=== PATIENT | male | born 1945 | race Caucasian/White ===

== ENCOUNTER 2020-04-28 12:01 | Inpatient (IN) ==
--- NOTE | 2020-04-28 12:43 | Emergency Department Note ---
Impression & Plan Pulmonary edema, DOMINGUEZ (dyspnea on exertion), Anemia ED Provider Note NAME: ELDER SILVER AGE: 75 SEX: M : 1945 ARRIVES VIA: Walk-In INFORMANT: Patient, ED PROVIDER(S): Keshawn Emanuel DO CHIEF COMPLAINT: Shortness of breath HPI: The patient is a 75-year-old male who presented to the emergency department for an evaluation of shortness of breath. The patient has had symptoms since the last week. He started noticing difficulty breathing with exertion. He has had a cough which is nonproductive. He denies having any fevers. He denies having any chest pain or lower extremity swelling. The patient went to the [place] [facility] for an evaluation at at that time was noted to have a pleural effusion on chest x-ray so he was sent to the emergency department for further evaluation. The patient denies having any abdominal pain. He denies having any significant weight loss. The patient has no exposures to COVID-19 as far as he knows. The patient has been compliant with all of his outpatient medications including med ications for hypertension and diabetes. The patient has never had a history of heart failure as far as he knows. His significant other presented to the emergency department with him and is asymptomatic. ROS: See above HPI for pertinent positives & negatives. A total of 10 systems reviewed and were otherwise negative. PAST MEDICAL HISTORY: See Below PAST SURGICAL HISTORY: See Below FAMILY HISTORY: See Below SOCIAL HISTORY: See Below HOME MEDICATIONS: See Below ALLERGIES: See Below VITALS: See Below PHYSICAL EXAMINATION: GENERAL: Patient is awake alert in no acute distress patient is resting comfortably and showing no signs of anxiety EYES: The conjunctivae are clear. The pupils are round and reactive. EARS, NOSE, MOUTH AND THROAT: The nose is without any evidence of any deformity. NECK: The neck is nontender and supple. RESPIRATORY: Diminished breath sounds are noted throughout. There were rales at both bases. Significant conversational dyspnea was noted. CARDIOVASCULAR: Regular rate and rhythm noted there no murmurs rubs or gallops normal S1 normal S2. GASTROINTESTINAL: The abdomen is soft. Abdomen is nontender. Rectal exam revealed light brown stool which was weakly heme positive MUSCULOSKELETAL/EXTREMITIES: There is no evidence of gross deformity full range of motion is noted in the hips and shoulders. SKIN: There is no obvious evidence of any rash. There are no petechiae, pallor or cyanosis noted. NEUROLOGIC: Patient is awake alert and oriented x3. MEDICAL DECISION MAKING: The patient is a 75-year-old male who presented to the emergency department for an evaluation of shortness of breath. The patient has been noticing dyspnea on exertion for approximately 1 week but his symptoms became much worse over the last few days. Initially he was seen at the [facility] and was sent to the em ergency department because of an abnormal x-ray. The chest x-ray report I reviewed from the [place] [facility] did show bilateral infiltrates with pleural effusions. The patient's heart size was enlarged. Repeat chest x-ray was obtained here which appear to be more consistent with pulmonary edema. The melinda garcia's overall presentation appears to be more consistent with pulmonary edema likely secondary to severe anemia. His renal function was also evaluated and showed an elevated creatinine. I discussed the patient's laboratory and radiographic studies with him. Blood products were ordered as well as Lasix given the patient's pulmonary status. He was feeling much better on subsequent reevaluation. [facility] will evaluate the patient in the emergency department for further management and disposition. Triage Nursing notes reviewed. Prior medical records reviewed Vital Signs: reviewed and remarkable for no significant abnormalities Differential diagnosis: Reactive airway disease, pneumonia, pneumothorax, COPD, CHF, infections, cardiac ischemia, pulmonary embolism, musculoskeletal, gastrointestinal, as well as other pathologies. ER treatment provided: See below Diagnostics interpreted by me: ECG: EKG was obtained in the emergency department. My interpretation is normal sinus rhythm at 63 bpm. There is no ectopy. There were no acute ST segment abnormalities noted. There is no previous for comparison. Cardiac Monitoring: An order was placed for continuous cardiac monitoring. The monitor shows a rate of 82 bpm with sinus rhythm. Laboratory studies: As stated above and show below. Imaging studies: See below Consultation(s): [id number]: I discussed this case with Dr. Lozano who [facility] He will evaluate the patient in the emergency department. ED COURSE: Procedures: none PDMP:reviewed and no issues Critical Care: I have personally spent greater than 45 minutes of critical care time in the direct management of this patient. This includes bedside care, interpretation of diagnostic studies, and testing, discussion with consultants, patient, and family members, and other required patient management activities. This 45 minutes is in excess of all separately billable procedures. Past Med/Surg History Medical History (Updated 04/28/20 @ 15:17 by Jono Lozano) DJD (degenerative joint disease), lumbar High cholesterol Hypertension IDDM (insulin dependent diabetes mellitus) Osteoarthritis Surgical History (Updated 04/28/20 @ 15:18 by Jono Lozano) H/O foot surgery left - bone spur Hx of tonsillectomy Family History (Updated 04/28/20 @ 15:20 by Jono Lozano) Mother Diabetes Hypertension Heart disease Father , unknown medical history No problems noted. Brother Hypertension Sister Hypertension Sister Hypertension Social History (Updated 04/28/20 @ 15:22 by Jono Lozano) Smoking Status: Former smoker packs per day: 1; Years Smoked: 15; Smoking End Date: 1983; Hx Alcohol Use: No marital status: Current Living Situation: Spouse Current Living Situation Comment: lives in [place] with current occupational status: retired current occupation: worked for [employer] How many Children do You have: 4 How many Children do You have Comment: step-children Feels Safe at Home: Yes Allergies Allergies Allergy/AdvReac Type Severity Reaction Status Date / Time No Known Allergies Allergy Unverified 04/28/20 14:54 Home Meds Home Medications Medication Instructions Recorded Confirmed amlodipine 10 mg PO DAILY 04/28/20 04/28/20 aspirin 81 mg PO DAILY 04/28/20 04/28/20 atenolol 25 mg PO DAILY 04/28/20 04/28/20 atorvastatin 80 mg PO HS 04/28/20 04/28/20 cetirizine 10 mg PO DAILY 04/28/20 04/28/20 cholecalciferol (vitamin D3) 25 mcg PO DAILY 04/28/20 04/28/20 etodolac 400 mg PO BID 04/28/20 04/28/20 famotidine 20 mg PO DAILY 04/28/20 04/28/20 gabapentin 100 mg PO BID 04/28/20 04/28/20 hydrochlorothiazide 50 mg PO DAILY 04/28/20 04/28/20 insulin aspart U-100 [Novolog 30 unit SUBCUT TID 04/28/20 04/28/20 Flexpen U-100 Insulin] insulin glargine [Lantus Solostar 60 unit SUBCUT HS 04/28/20 04/28/20 U-100 Insulin] lisinopril 40 mg PO DAILY 04/28/20 04/28/20 Results & Data (ED) Vital Signs Vital Signs - 24 hr 04/28/20 12:16 04/28/20 13:13 04/28/20 13:21 Temperature 36.5 C Temperature Source Oral Pulse Rate 66 65 67 Pulse Rate from SpO2 Sensor 65 67 Respiratory Rate 22 17 21 Respiratory Effort / Characteristics Non-Labored Respiratory Depth Normal Respiratory Pattern Regular Blood Pressure 135/74 121/66 Blood Pressure Mean 94 81 Pulse Oximetry 92 94 95 Oxygen Delivery Method Room Air Sepsis Recent Fever Within 48 Hours No Sepsis New/Unexplained Change in Mental Status N/A Sepsis Action Taken by Nursing No Action Required 04/28/20 13:30 04/28/20 13:31 04/28/20 13:33 Temperature Temperature Source Pulse Rate 64 71 Pulse Rate from SpO2 Sensor 64 66 Respiratory Rate 19 17 Respiratory Effort / Characteristics Non-Labored Spontaneous Respiratory Depth Respiratory Pattern Regular Blood Pressure 144/84 H Blood Pressure Mean 103 Pulse Oximetry 91 91 Oxygen Delivery Method Room Air Sepsis Recent Fever Within 48 Hours Sepsis New/Unexplained Change in Mental Status Sepsis Action Taken by Nursing 04/28/20 14:00 04/28/20 14:01 04/28/20 14:30 Temperature Temperature Source Pulse Rate 62 64 66 Pulse Rate from SpO2 Sensor 62 64 Respiratory Rate 17 17 20 Respiratory Effort / Characteristics Respiratory Depth Respiratory Pattern Blood Pressure 164/141 H Blood Pressure Mean 155 Pulse Oximetry 92 93 Oxygen Delivery Method Sepsis Recent Fever Within 48 Hours Sepsis New/Unexplained Change in Mental Status Sepsis Action Taken by Nursing 04/28/20 14:31 Temperature Temperature Source Pulse Rate 68 Pulse Rate from SpO2 Sensor 69 Respiratory Rate 21 Respiratory Effort / Characteristics Respiratory Depth Respiratory Pattern Blood Pressure 124/71 Blood Pressure Mean 92 Pulse Oximetry 93 Oxygen Delivery Method Sepsis Recent Fever Within 48 Hours Sepsis New/Unexplained Change in Mental Status Sepsis Action Taken by [facility] Medications Current Medication List: was personally reviewed by me Laboratory Data Attestation: I reviewed the patient's lab results. Result diagrams: 04/28/20 13:15 04/28/20 13:15 Lab Results 04/28/20 04/28/20 04/28/20 Range/Units 13:15 13:15 13:15 WBC 9.97 (4.8-10.8) K/uL RBC 2.76 L (4.7-6.1) M/uL Hgb 6.2 L* (14.0-18.0) g/dL Hct 20.7 L* (42-52) % MCV 75.0 L (80-100) fL MCH 22.5 L (25-34) pg MCHC 30.0 L (32-36) g/dL RDW Std Deviation 40.1 (36.4-46.3) fL RDW Coeff of Sarah 14.6 H (11.5-14.5) % Plt Count 257 (130-400) K/uL MPV 10.6 H (7.4-10.4) fL Immature Gran % (Auto) 0.2 % Neut % (Auto) 84.0 % Lymph % (Auto) 7.7 % Iron % (Auto) 7.0 % Eos % (Auto) 0.7 % Baso % (Auto) 0.4 % Neut # (Auto) 8.37 H (1.4-6.5) K/uL Lymph # (Auto) 0.77 L (1.2-3.4) K/uL Iron # (Auto) 0.70 H (0.11-0.59) K/uL Eos # (Auto) 0.07 (0-0.5) K/uL Baso # (Auto) 0.04 (0-0.2) K/uL Immature Gran # (Auto) 0.02 (0.00-0.02) K/uL Polychromasia 1+ Microcytosis Present ESR (0-14) mm/hr PT 11.3 (9.0-12.0) Seconds INR 1.1 (0.9-1.1) APTT 21.1 (21.0-31.0) Seconds PTT Ratio 0.8 VBG pH (7.36-7.41) VBG pCO2 (38-50) mmHg VBG pO2 mmHg VBG HCO3 mmol/L VBG O2 Saturation % VBG Base Excess mEq/L Barometric Pressure mm/Hg Sodium 135 L (136-145) mmol/L Potassium 4.4 (3.5-5.1) mmol/L Chloride 107 (98-107) mmol/L Carbon Dioxide 21 (21-32) mmol/L Anion Gap 7.0 (3-11) BUN 32 H (7-18) mg/dl Creatinine 2.14 H (0.6-1.4) mg/dl Est Cr Clr Drug Dosing 37.2 ml/min Est GFR ( Amer) 34.3 Est GFR (Non-Af Amer) 29.6 BUN/Creatinine Ratio 15.1 (10-20) Glucose 255 H (70-99) mg/dl Lactate (0.4-2.0) mmol/L Calcium 8.1 L (8.5-10.1) mg/dl Magnesium 2.5 H (1.8-2.4) mg/dl Total Bilirubin 0.7 (0.2-1) mg/dl AST 28 (15-37) U/L ALT 37 (12-78) U/L Alkaline Phosphatase 118 H (45-117) U/L Troponin I < 0.015 (0-0.045) ng/ml C-Reactive Protein (0-0.29) mg/dl NT-Pro-B Natriuret Pep (0-900) pg/ml Total Protein 6.9 (6.4-8.2) gm/dl Albumin 2.9 L (3.4-5.0) gm/dl Globulin 4.0 (2.5-4.0) gm/dl Albumin/Globulin Ratio 0.7 L (0.9-2) Procalcitonin (0-0.5) ng/ml COVID-19 Eval Order COVID-19 PCR (Negative) Nasopharyn COVID-19 PCR Influenza Type A (PCR) (Neg) Influenza Type B (PCR) (Neg) Blood Type Blood Type Recheck Antibody Screen Crossmatch 04/28/20 04/28/20 04/28/20 Range/Units 13:15 13:15 13:17 WBC (4.8-10.8) K/uL RBC (4.7-6.1) M/uL Hgb (14.0-18.0) g/dL Hct (42-52) % MCV (80-100) fL MCH (25-34) pg MCHC (32-36) g/dL RDW Std Deviation (36.4-46.3) fL RDW Coeff of Sarah (11.5-14.5) % Plt Count (130-400) K/uL MPV (7.4-10.4) fL Immature Gran % (Auto) % Neut % (Auto) % Lymph % (Auto) % Iron % (Auto) % Eos % (Auto) % Baso % (Auto) % Neut # (Auto) (1.4-6.5) K/uL Lymph # (Auto) (1.2-3.4) K/uL Iron # (Auto) (0.11-0.59) K/uL Eos # (Auto) (0-0.5) K/uL Baso # (Auto) (0-0.2) K/uL Immature Gran # (Auto) (0.00-0.02) K/uL Polychromasia Microcytosis ESR (0-14) mm/hr PT (9.0-12.0) Seconds INR (0.9-1.1) APTT (21.0-31.0) Seconds PTT Ratio VBG pH (7.36-7.41) VBG pCO2 (38-50) mmHg VBG pO2 mmHg VBG HCO3 mmol/L VBG O2 Saturation % VBG Base Excess mEq/L Barometric Pressure mm/Hg Sodium (136-145) mmol/L Potassium (3.5-5.1) mmol/L Chloride (98-107) mmol/L Carbon Dioxide (21-32) mmol/L Anion Gap (3-11) BUN (7-18) mg/dl Creatinine (0.6-1.4) mg/dl Est Cr Clr Drug Dosing ml/min Est GFR ( Amer) Est GFR (Non-Af Amer) BUN/Creatinine Ratio (10-20) Glucose (70-99) mg/dl Lactate (0.4-2.0) mmol/L Calcium (8.5-10.1) mg/dl Magnesium (1.8-2.4) mg/dl Total Bilirubin (0.2-1) mg/dl AST (15-37) U/L ALT (12-78) U/L Alkaline Phosphatase (45-117) U/L Troponin I (0-0.045) ng/ml C-Reactive Protein 0.64 H (0-0.29) mg/dl NT-Pro-B Natriuret Pep 1125 H (0-900) pg/ml Total Protein (6.4-8.2) gm/dl Albumin (3.4-5.0) gm/dl Globulin (2.5-4.0) gm/dl Albumin/Globulin Ratio (0.9-2) Procalcitonin 0.12 (0-0.5) ng/ml COVID-19 Eval Order COVID-19 PCR (Negative) Nasopharyn COVID-19 PCR Influenza Type A (PCR) Neg for Influ A (Neg) Influenza Type B (PCR) Neg for Influ B (Neg) Blood Type Blood Type Recheck Antibody Screen Crossmatch 04/28/20 04/28/20 04/28/20 Range/Units 13:17 13:17 13:17 WBC (4.8-10.8) K/uL RBC (4.7-6.1) M/uL Hgb (14.0-18.0) g/dL Hct (42-52) % MCV (80-100) fL MCH (25-34) pg MCHC (32-36) g/dL RDW Std Deviation (36.4-46.3) fL RDW Coeff of Sarah (11.5-14.5) % Plt Count (130-400) K/uL MPV (7.4-10.4) fL Immature Gran % (Auto) % Neut % (Auto) % Lymph % (Auto) % Iron % (Auto) % Eos % (Auto) % Baso % (Auto) % Neut # (Auto) (1.4-6.5) K/uL Lymph # (Auto) (1.2-3.4) K/uL Iron # (Auto) (0.11-0.59) K/uL Eos # (Auto) (0-0.5) K/uL Baso # (Auto) (0-0.2) K/uL Immature Gran # (Auto) (0.00-0.02) K/uL Polychromasia Microcytosis ESR (0-14) mm/hr PT (9.0-12.0) Seconds INR (0.9-1.1) APTT (21.0-31.0) Seconds PTT Ratio VBG pH (7.36-7.41) VBG pCO2 (38-50) mmHg VBG pO2 mmHg VBG HCO3 mmol/L VBG O2 Saturation % VBG Base Excess mEq/L Barometric Pressure mm/Hg Sodium (136-145) mmol/L Potassium (3.5-5.1) mmol/L Chloride (98-107) mmol/L Carbon Dioxide (21-32) mmol/L Anion Gap (3-11) BUN (7-18) mg/dl Creatinine (0.6-1.4) mg/dl Est Cr Clr Drug Dosing ml/min Est GFR ( Amer) Est GFR (Non-Af Amer) BUN/Creatinine Ratio (10-20) Glucose (70-99) mg/dl Lactate (0.4-2.0) mmol/L Calcium (8.5-10.1) mg/dl Magnesium (1.8-2.4) mg/dl Total Bilirubin (0.2-1) mg/dl AST (15-37) U/L ALT (12-78) U/L Alkaline Phosphatase (45-117) U/L Troponin I (0-0.045) ng/ml C-Reactive Protein (0-0.29) mg/dl NT-Pro-B Natriuret Pep (0-900) pg/ml Total Protein (6.4-8.2) gm/dl Albumin (3.4-5.0) gm/dl Globulin (2.5-4.0) gm/dl Albumin/Globulin Ratio (0.9-2) Procalcitonin (0-0.5) ng/ml COVID-19 Eval Order Covid19 Sent to [facility] COVID-19 PCR NEGATIVE (Negative) Nasopharyn COVID-19 PCR Cancelled Influenza Type A (PCR) (Neg) Influenza Type B (PCR) (Neg) Blood Type Blood Type Recheck Antibody Screen Crossmatch 04/28/20 04/28/20 04/28/20 Range/Units 14:12 14:12 14:12 WBC (4.8-10.8) K/uL RBC (4.7-6.1) M/uL Hgb (14.0-18.0) g/dL Hct (42-52) % MCV (80-100) fL MCH (25-34) pg MCHC (32-36) g/dL RDW Std Deviation (36.4-46.3) fL RDW Coeff of Sarah (11.5-14.5) % Plt Count (130-400) K/uL MPV (7.4-10.4) fL Immature Gran % (Auto) % Neut % (Auto) % Lymph % (Auto) % Iron % (Auto) % Eos % (Auto) % Baso % (Auto) % Neut # (Auto) (1.4-6.5) K/uL Lymph # (Auto) (1.2-3.4) K/uL Iron # (Auto) (0.11-0.59) K/uL Eos # (Auto) (0-0.5) K/uL Baso # (Auto) (0-0.2) K/uL Immature Gran # (Auto) (0.00-0.02) K/uL Polychromasia Microcytosis ESR 11 (0-14) mm/hr PT (9.0-12.0) Seconds INR (0.9-1.1) APTT (21.0-31.0) Seconds PTT Ratio VBG pH 7.38 (7.36-7.41) VBG pCO2 36 L (38-50) mmHg VBG pO2 35 mmHg VBG HCO3 21 mmol/L VBG O2 Saturation < 60.0 % VBG Base Excess -3.8 mEq/L Barometric Pressure 736.2 mm/Hg Sodium (136-145) mmol/L Potassium (3.5-5.1) mmol/L Chloride (98-107) mmol/L Carbon Dioxide (21-32) mmol/L Anion Gap (3-11) BUN (7-18) mg/dl Creatinine (0.6-1.4) mg/dl Est Cr Clr Drug Dosing ml/min Est GFR ( Amer) Est GFR (Non-Af Amer) BUN/Creatinine Ratio (10-20) Glucose (70-99) mg/dl Lactate 1.6 (0.4-2.0) mmol/L Calcium (8.5-10.1) mg/dl Magnesium (1.8-2.4) mg/dl Total Bilirubin (0.2-1) mg/dl AST (15-37) U/L ALT (12-78) U/L Alkaline Phosphatase (45-117) U/L Troponin I (0-0.045) ng/ml C-Reactive Protein (0-0.29) mg/dl NT-Pro-B Natriuret Pep (0-900) pg/ml Total Protein (6.4-8.2) gm/dl Albumin (3.4-5.0) gm/dl Globulin (2.5-4.0) gm/dl Albumin/Globulin Ratio (0.9-2) Procalcitonin (0-0.5) ng/ml COVID-19 Eval Order COVID-19 PCR (Negative) Nasopharyn COVID-19 PCR Influenza Type A (PCR) (Neg) Influenza Type B (PCR) (Neg) Blood Type Blood Type Recheck Antibody Screen Crossmatch 04/28/20 04/28/20 Range/Units 14:12 14:27 WBC (4.8-10.8) K/uL RBC (4.7-6.1) M/uL Hgb (14.0-18.0) g/dL Hct (42-52) % MCV (80-100) fL MCH (25-34) pg MCHC (32-36) g/dL RDW Std Deviation (36.4-46.3) fL RDW Coeff of Sarah (11.5-14.5) % Plt Count (130-400) K/uL MPV (7.4-10.4) fL Immature Gran % (Auto) % Neut % (Auto) % Lymph % (Auto) % Iron % (Auto) % Eos % (Auto) % Baso % (Auto) % Neut # (Auto) (1.4-6.5) K/uL Lymph # (Auto) (1.2-3.4) K/uL Iron # (Auto) (0.11-0.59) K/uL Eos # (Auto) (0-0.5) K/uL Baso # (Auto) (0-0.2) K/uL Immature Gran # (Auto) (0.00-0.02) K/uL Polychromasia Microcytosis ESR (0-14) mm/hr PT (9.0-12.0) Seconds INR (0.9-1.1) APTT (21.0-31.0) Seconds PTT Ratio VBG pH (7.36-7.41) VBG pCO2 (38-50) mmHg VBG pO2 mmHg VBG HCO3 mmol/L VBG O2 Saturation % VBG Base Excess mEq/L Barometric Pressure mm/Hg Sodium (136-145) mmol/L Potassium (3.5-5.1) mmol/L Chloride (98-107) mmol/L Carbon Dioxide (21-32) mmol/L Anion Gap (3-11) BUN (7-18) mg/dl Creatinine (0.6-1.4) mg/dl Est Cr Clr Drug Dosing ml/min Est GFR ( Amer) Est GFR (Non-Af Amer) BUN/Creatinine Ratio (10-20) Glucose (70-99) mg/dl Lactate (0.4-2.0) mmol/L Calcium (8.5-10.1) mg/dl Magnesium (1.8-2.4) mg/dl Total Bilirubin (0.2-1) mg/dl AST (15-37) U/L ALT (12-78) U/L Alkaline Phosphatase (45-117) U/L Troponin I (0-0.045) ng/ml C-Reactive Protein (0-0.29) mg/dl NT-Pro-B Natriuret Pep (0-900) pg/ml Total Protein (6.4-8.2) gm/dl Albumin (3.4-5.0) gm/dl Globulin (2.5-4.0) gm/dl Albumin/Globulin Ratio (0.9-2) Procalcitonin (0-0.5) ng/ml COVID-19 Eval Order COVID-19 PCR (Negative) Nasopharyn COVID-19 PCR Influenza Type A (PCR) (Neg) Influenza Type B (PCR) (Neg) Blood Type O Positive Blood Type Recheck O Positive Antibody Screen NEGATIVE Crossmatch See Detail Administered Medications Discontinued Medications Furosemide (Furosemide 40 Mg/4 Ml Vial) 40 mg IV NOW STA Stop: 04/28/20 14:05 Last Admin: 04/28/20 14:46 Dose: 40 mg Documented by: [id number] Imaging Data Radiologist's Impression: XR chest 1V portable HISTORY: 75 years-old Male Dyspnea acute shortness of breath COMPARISON: None TECHNIQUE: Portable AP view of the chest FINDINGS: Cardiac silhouette is enlarged. Pulmonary vascular congestion with interstitial coarsening. No pneumothorax. Small pleural effusions with bibasilar consolidation. Degenerative changes of the shoulders and spine. IMPRESSION: 1. Cardiomegaly with pulmonary vascular congestion and interstitial coarsening suggestive of pulmonary edema. 2. Small pleural effusions with bibasilar opacities suggestive of atelectasis versus pneumonitis. ACT 112: Negative or not required by law. The above report was generated using voice recognition software. It may contain grammatical, syntax or spelling errors. Electronically signed by: Yovani Greco M.D. 04/28/2020 1:39 PM Dictated: 04/28/20 1339 Transcribed: 04/28/201338 Blood Pressure Blood Pressure Findings: Normal blood pressure Discharge Plan Visit Data Chief Complaint: Shortness of Breath/Dyspnea Stated Complaint: SOB, FLUID ON LUNGS SENT BY ED Provider: Keshawn Emanuel Discharge Problem: Pulmonary edema, DOMINGUEZ (dyspnea on exertion), Anemia Patient Disposition: Being Evaluated by Hospitalist Condition: Good Forms Stand Alone Forms: My [facility] [place] [employer] Prescriptions Prescriptions: No Action atorvastatin 80 mg Tablet 80 mg PO HS RF: 0 etodolac 200 mg Capsule 400 mg PO BID RF: 0 cetirizine 10 mg Tablet 10 mg PO DAILY RF: 0 hydrochlorothiazide 50 mg Tablet 50 mg PO DAILY RF: 0 atenolol 25 mg Tablet 25 mg PO DAILY RF: 0 aspirin 81 mg Tablet,Delayed Release (Dr/Ec) 81 mg PO DAILY RF: 0 famotidine 20 mg Tablet 20 mg PO DAILY RF: 0 amlodipine 10 mg Tablet 10 mg PO DAILY RF: 0 gabapentin 100 mg Capsule 100 mg PO BID RF: 0 lisinopril 40 mg Tablet 40 mg PO DAILY RF: 0 insulin aspart U-100 [Novolog Flexpen U-100 Insulin] 100 unit/mL (3 mL) Insulin Pen 30 unit SUBCUT TID RF: 0 cholecalciferol (vitamin D3) 25 mcg (1,000 unit) Tablet 25 mcg PO DAILY RF: 0 Lantus Solostar U-100 Insulin 100 unit/mL (3 mL) Insulin Pen 60 unit SUBCUT HS RF: 0 Referrals Referrals: Richelle Mcdermott PA-C [Primary Care Provider] -
--- NOTE | 2020-04-28 13:41 | XRay Report ---
XR chest 1V portable HISTORY: 75 years-old Male Dyspnea acute shortness of breath COMPARISON: None TECHNIQUE: Portable AP view of the chest FINDINGS: Cardiac silhouette is enlarged. Pulmonary vascular congestion with interstitial coarsening. No pneumo thorax. Small pleural effusions with bibasilar consolidation. Degenerative changes of the shoulders a nd spine. IMPRESSION: 1. Cardiomegaly with pulmonary vascular congestion and interstitial coarsening suggestive of pulmonar y edema. 2. Small pleural effusions with bibasilar opacities suggestive of atelectasis versus pneumonitis. ACT 112: Negative or not required by law. The above report was generated using voice recognition software. It may contain grammatical, syntax o r spelling errors. Electronically signed by: Yovani Greco M.D. 04/28/2020 1:39 PM
[2020-04-28 13:54] LABS: Hematocrit (blood only) 20.7 % (42-52); Hemoglobin 6.2 g/dL (14.0-18.0); INR 1.1 (0.9-1.1); Mean Corpuscular Hemoglobin 22.5 pg (25-34); Mean Platelet Volume 10.6 fL (7.4-10.4); Partial Thromboplastin Ratio 0.8; Partial Thromboplastin Time 21.1 Seconds (21.0-31.0); Platelet Count 257 K/uL (130-400); Prothrombin Time 11.3 Seconds (9.0-12.0); RDW Coefficient of Variation 14.6 % (11.5-14.5); RDW Standard Deviation 40.1 fL (36.4-46.3); Red Blood Count 2.76 M/uL (4.7-6.1); White Blood Count 9.97 K/uL (4.8-10.8)
[2020-04-28 13:57] LABS: Albumin Level 2.9 gm/dl (3.4-5.0); BUN Creatinine Ratio 15.1 (10-20); Blood Urea Nitrogen 32 mg/dl (7-18); Calcium 8.1 mg/dl (8.5-10.1); Carbon Dioxide 21 mmol/L (21-32); Chloride 107 mmol/L (98-107); Creatinine Clr Calc Pharmacy 37.2 ml/min; Est GFR (African American) 34.3; Est GFR (Non-African American) 29.6; Glucose 255 mg/dl (70-99); Magnesium 2.5 mg/dl (1.8-2.4); Potassium 4.4 mmol/L (3.5-5.1); Sodium 135 mmol/L (136-145)
[2020-04-28 14:00] LABS: Alanine Aminotransferase 37 U/L (12-78); Albumin Globulin Ratio 0.7 (0.9-2); Alkaline Phosphatase 118 U/L (45-117); Aspartate Aminotransferase 28 U/L (15-37); Bilirubin,Total 0.7 mg/dl (0.2-1); Total Protein 6.9 gm/dl (6.4-8.2); Troponin I < 0.015 ng/ml (0-0.045)
[2020-04-28] MEDS ORDERED: FUROSEMIDE 40 MG/4 ML VIAL IV STA (14:04)
[2020-04-28] MEDS ORDERED: SODIUM CHLORIDE 0.9% 250 ML IV PRN (14:04)
[2020-04-28 14:23] LABS: Influenza A virus by PCR Neg for Influ A (Neg); Influenza B virus by PCR Neg for Influ B (Neg)
[2020-04-28 14:25] LABS: Basophils # (auto) 0.04 K/uL (0-0.2); Basophils % (auto) 0.4 %; Eosinophils # (auto) 0.07 K/uL (0-0.5); Eosinophils % (auto) 0.7 %; Immature Granulocytes # (auto) 0.02 K/uL (0.00-0.02); Immature Granulocytes % (auto) 0.2 %; Lymphocytes # (auto) 0.77 K/uL (1.2-3.4); Lymphocytes % (auto) 7.7 %; Microcytosis Present; Neutrophils # (auto) 8.37 K/uL (1.4-6.5); Polychromasia 1+
[2020-04-28 14:34] LABS: Base Excess VBG -3.8 mEq/L; HCO3 VBG 21 mmol/L; PCO2 VBG 36 mmHg (38-50); PO2 VBG 35 mmHg; pH VBG 7.38 (7.36-7.41)
[2020-04-28 14:35] LABS: Oxygen Saturation VBG < 60.0 %
[2020-04-28 14:43] LABS: C Reactive Protein 0.64 mg/dl (0-0.29)
--- NOTE | 2020-04-28 15:25 | History & Physical Report ---
Date of Service April 28, 2020 Assessment & Plan (1) Acute CHF: Patient clinically and radiographically has evidence of acute CHF. This along with his severe anemia are the causes of his significant dyspnea. s/p lasix 40mg x 1 given in ER by ER attending. Anemia likely making his CHF wors Patient to receive 2 units of PRBCs; will give additional 40mg of IV lasix following 2nd unit of blood. Place on telemetry. Check atenolol to metoprolol. Check echo in am. If LV function is depressed then resume FELIX when able. Fluid restrict; salt restrict. Daily standing scale weights. Depending on echo findings may need cardiology consultation. (2) Iron deficiency anemia: Severe Fe deficiency -- ferritin <5, presenting Hb 6.2. Chronic rectal bleeding from hemorrhoids may be the culprit but I cannot rule out GI bleeding from other source. Place on PPI twice daily. Repeat CBC tonight and in am. GI consult with Dr Russell requested for consideration of endoscopic evaluation. Would likely benefit from IV venofer infusion this admission. (3) Microcytic anemia: 2nd to severe iron deficiency. (4) Pulmonary edema: in the setting of acute CHF. see above. diurese. (5) Elevated serum creatinine: Cr at presentation today 2.1 unknown baseline. he has volume overload and hopefully by diuresing his Cr will improved. repeat BMP am. HOLD etodalac. HOLD FELIX. HOLD HCTZ. (6) High cholesterol: Cont statin (lipitor 80mg daily). (7) IDDM (insulin dependent diabetes mellitus): Long-standing. Cont lantus 60 units daily. Cont novolog -- correction factor 12, carb ratio 1:4. Check a1c in am. (8) Hypertension: Hold FELIX. Hold amlodipine. Hold HCTZ. Switch atenolol to lopressor as noted above. (9) BPH (benign prostatic hyperplasia): Severe symptoms by history. Start flomax 0.4mg daily. Check renal/bladder u/s -- r/o obstruction in light of the BPH and the elevated creatinine. (10) Heme positive stool: trace, per ER attending. likely due to hemorrhoids. cannot rule out other GI tract pathology. GI consult. (11) Hemorrhoids: active, copious bleeding at home. anusol suppos TID. Gi consult. (12) Diabetic peripheral neuropathy: Cont gabapentin. (13) DVT prophylaxis: hold on chemical means for now due to rectal bleeding SCS, ambulate History of Present Illness Chief Complaint: shortness of breath Primary Care Provider: Richelle Mcdermott PA-C 75yo male with history of HTN and T2DM who presents as a referral from the [facility] due to dyspnea. Dyspnea has been present for 2 weeks and mainly with exertion. Has had considerable fatigue and weakness. Has had PND. No orthopnea. Some edema of his feet only. Some cough with congestion. No fevers or chills. Normal appetite. No loss of taste or smell, runny nose, sore throat, diarrhea or vomiting. Minimal LLQ abdominal discomfort recently not worsened by eating. Has had abdominal bloating, however. Has gained 20 pounds of weight in the last 2 months. Reports hemorrhoids and recent bleeding from such. Bleeding started about 2 weeks ago. No melena. Has never had EGD or colonoscopy. Allergies Allergy/AdvReac Type Severity Reaction Status Date / Time No Known Allergies Allergy Unverified 04/28/20 14:54 Home Medications Home Medications Medication Instructions Recorded Confirmed Type amlodipine 10 mg PO DAILY 04/28/20 04/28/20 History aspirin 81 mg PO DAILY 04/28/20 04/28/20 History atenolol 25 mg PO DAILY 04/28/20 04/28/20 History atorvastatin 80 mg PO HS 04/28/20 04/28/20 History cetirizine 10 mg PO DAILY 04/28/20 04/28/20 History cholecalciferol (vitamin D3) 25 mcg PO DAILY 04/28/20 04/28/20 History etodolac 400 mg PO BID 04/28/20 04/28/20 History famotidine 20 mg PO DAILY 04/28/20 04/28/20 History gabapentin 100 mg PO BID 04/28/20 04/28/20 History hydrochlorothiazide 50 mg PO DAILY 04/28/20 04/28/20 History insulin aspart U-100 [Novolog 30 unit SUBCUT TID 04/28/20 04/28/20 History Flexpen U-100 Insulin] insulin glargine [Lantus Solostar 60 unit SUBCUT HS 04/28/20 04/28/20 History U-100 Insulin] lisinopril 40 mg PO DAILY 04/28/20 04/28/20 History Past Med/Surg History Medical History (Updated 04/28/20 @ 22:51 by Jono Lozano) DJD (degenerative joint disease), lumbar Hemorrhoids High cholesterol Hypertension IDDM (insulin dependent diabetes mellitus) Osteoarthritis Surgical History (Updated 04/28/20 @ 15:18 by Jono Lozano) H/O foot surgery left - bone spur Hx of tonsillectomy Family History (Updated 04/28/20 @ 15:20 by Jono Lozano) Mother Diabetes Hypertension Heart disease Father , unknown medical history No problems noted. Brother Hypertension Sister Hypertension Sister Hypertension Social History (Updated 04/28/20 @ 15:22 by Jono Lozano) Smoking Status: Former smoker packs per day: 1; Years Smoked: 15; Smoking End Date: 1983; Second Hand Exposure: No; Do You Dip or Chew Tobacco: No; Tobacco Cessation Education Requested by Patient: No Hx Alcohol Use: Yes Alcohol type: beer and wine Hx Substance Use: No Preferred Language: Telugu Communication Ability: Effective Plasticator Required: No Beliefs That Will Affect Care: None marital status: Current Living Situation: Spouse Current Living Situation Comment: lives in [place] with current occupational status: retired current occupation: worked for [employer] How many Children do You have: 4 How many Children do You have Comment: step-children Other Information That Helps Us Care for You: No Feels Safe at Home: Yes Safety Concerns: Feels Safe At This Time Assistive Devices: None Review of Systems Constitutional: + fatigue and + weight gain; no fever, no chills and no anorexia Eyes: no worsening vision Ear, Nose, Mouth, Throat: no ear pain and no nasal congestion Respiratory: + cough, + chest congestion and + dyspnea on exertion Cardiovascular: + edema; no chest pain Gastrointestinal: + bloating and + blood in stools; no nausea and no vomiting Genitourinary: + difficulty urinating; no dysuria Musculoskeletal: + back pain Integumentary: no rash Neurologic: + loss of sensation (feet - from diabetes ) Psychiatric: no depression Endocrine: diabetes x 10 years; a1c - 7-8 range Hematologic / Lymphatic: no easy bleeding and no easy bruising Physical Exam Constitutional: well developed, well nourished, + acute distress (with any movement has severe dyspnea ) and + obese; no altered mental status Eyes: PERRL ENMT: external ear and nose normal, oropharynx normal Neck: trachea midline, no thyromegaly Respiratory: + labored breathing (after walking to bathroom ) and + tachypneic (after walking to bathroom ) Auscultation: + diminished lung sounds (bases); no crackles and no wheezes Cardiovascular: Rate/Rhythm: regular rate and regular rhythm Heart Sounds: normal S1, normal S2 and + murmur (1/6 systolic murmur) Vessels: + JVD (mild), posterior tibial pulses present and dorsalis pedis pulses present Extremities: + edema (1+ feet ) Gastrointestinal (Abdomen): Inspection/Auscultation: + abdomen distended (with body wall edema vs ascites ) and normal bowel sounds Percussion/Palpation: abdomen nontender, no guarding and no hepatosplenomegaly MAXIM deferred; anus - no external hemorrhoids Musculoskeletal: no cyanosis or clubbing, extremities motor strength 5/5 Skin: + pallor; no rashes Neurologic: deep tendon reflexes 2+ bilaterally and moves all extremities Psychiatric: A+Ox3, euthymic affect Lymphatic: no cervical lymphadenopathy Results & Data Results & Data ([facility]) Vital Signs (Past 12 Hours) Vital Signs Temp Pulse Resp BP Pulse Ox 04/28/20 14:31 68 21 124/71 93 04/28/20 14:30 66 20 04/28/20 14:01 64 17 93 04/28/20 14:00 62 17 164/141 H 92 04/28/20 13:31 71 17 91 04/28/20 13:30 64 19 144/84 H 91 04/28/20 13:21 67 21 95 04/28/20 13:13 65 17 121/66 94 04/28/20 12:16 36.5 C 66 22 135/74 92 Laboratory Results Laboratory Results - last 24 hr 04/28/20 04/28/20 04/28/20 13:15 13:15 13:15 WBC 9.97 RBC 2.76 L Hgb 6.2 L* Hct 20.7 L* MCV 75.0 L MCH 22.5 L MCHC 30.0 L RDW Std Deviation 40.1 RDW Coeff of Sarah 14.6 H Plt Count 257 MPV 10.6 H Immature Gran % (Auto) 0.2 Neut % (Auto) 84.0 Lymph % (Auto) 7.7 [place] % (Auto) 7.0 Eos % (Auto) 0.7 Baso % (Auto) 0.4 Neut # (Auto) 8.37 H Lymph # (Auto) 0.77 L [place] # (Auto) 0.70 H Eos # (Auto) 0.07 Baso # (Auto) 0.04 Immature Gran # (Auto) 0.02 Polychromasia 1+ Microcytosis Present ESR PT 11.3 INR 1.1 APTT 21.1 PTT Ratio 0.8 VBG pH VBG pCO2 VBG pO2 VBG HCO3 VBG O2 Saturation VBG Base Excess Barometric Pressure Sodium 135 L Potassium 4.4 Chloride 107 Carbon Dioxide 21 Anion Gap 7.0 BUN 32 H Creatinine 2.14 H Est Cr Clr Drug Dosing 37.2 Est GFR ( Amer) 34.3 Est GFR (Non-Af Amer) 29.6 BUN/Creatinine Ratio 15.1 Glucose 255 H POC Glucose Lactate Calcium 8.1 L Magnesium 2.5 H Iron 10 L Transferrin 357 Transferrin % Sat 2 L Ferritin 6.2 L Total Bilirubin 0.7 AST 28 ALT 37 Alkaline Phosphatase 118 H Troponin I < 0.015 C-Reactive Protein NT-Pro-B Natriuret Pep Total Protein 6.9 Albumin 2.9 L Globulin 4.0 Albumin/Globulin Ratio 0.7 L Procalcitonin TSH Urine Color Urine Appearance Urine pH Ur Specific [place] Urine Protein Urine Glucose (UA) Urine Ketones Urine Blood Urine Nitrite Urine Bilirubin Urine Urobilinogen Ur Leukocyte Esterase COVID-19 Eval Order COVID-19 PCR Nasopharyn COVID-19 PCR Influenza Type A (PCR) Influenza Type B (PCR) Blood Type Blood Type Recheck Antibody Screen Crossmatch 04/28/20 04/28/20 04/28/20 13:15 13:15 13:15 WBC RBC Hgb Hct MCV MCH MCHC RDW Std Deviation RDW Coeff of Sarah Plt Count MPV Immature Gran % (Auto) Neut % (Auto) Lymph % (Auto) [place] % (Auto) Eos % (Auto) Baso % (Auto) Neut # (Auto) Lymph # (Auto) [place] # (Auto) Eos # (Auto) Baso # (Auto) Immature Gran # (Auto) Polychromasia Microcytosis ESR PT INR APTT PTT Ratio VBG pH VBG pCO2 VBG pO2 VBG HCO3 VBG O2 Saturation VBG Base Excess Barometric Pressure Sodium Potassium Chloride Carbon Dioxide Anion Gap BUN Creatinine Est Cr Clr Drug Dosing Est GFR ( Amer) Est GFR (Non-Af Amer) BUN/Creatinine Ratio Glucose POC Glucose Lactate Calcium Magnesium Iron Cancelled Transferrin Cancelled Transferrin % Sat Cancelled Ferritin Total Bilirubin AST ALT Alkaline Phosphatase Troponin I C-Reactive Protein 0.64 H NT-Pro-B Natriuret Pep 1125 H Total Protein Albumin Globulin Albumin/Globulin Ratio Procalcitonin 0.12 TSH Urine Color Urine Appearance Urine pH Ur Specific [place] Urine Protein Urine Glucose (UA) Urine Ketones Urine Blood Urine Nitrite Urine Bilirubin Urine Urobilinogen Ur Leukocyte Esterase COVID-19 Eval Order COVID-19 PCR Nasopharyn COVID-19 PCR Influenza Type A (PCR) Influenza Type B (PCR) Blood Type Blood Type Recheck Antibody Screen Crossmatch 04/28/20 04/28/20 04/28/20 13:15 13:17 13:17 WBC RBC Hgb Hct MCV MCH MCHC RDW Std Deviation RDW Coeff of Sarah Plt Count MPV Immature Gran % (Auto) Neut % (Auto) Lymph % (Auto) [place] % (Auto) Eos % (Auto) Baso % (Auto) Neut # (Auto) Lymph # (Auto) [place] # (Auto) Eos # (Auto) Baso # (Auto) Immature Gran # (Auto) Polychromasia Microcytosis ESR PT INR APTT PTT Ratio VBG pH VBG pCO2 VBG pO2 VBG HCO3 VBG O2 Saturation VBG Base Excess Barometric Pressure Sodium Potassium Chloride Carbon Dioxide Anion Gap BUN Creatinine Est Cr Clr Drug Dosing Est GFR ( Amer) Est GFR (Non-Af Amer) BUN/Creatinine Ratio Glucose POC Glucose Lactate Calcium Magnesium Iron Transferrin Transferrin % Sat Ferritin Cancelled Total Bilirubin AST ALT Alkaline Phosphatase Troponin I C-Reactive Protein NT-Pro-B Natriuret Pep Total Protein Albumin Globulin Albumin/Globulin Ratio Procalcitonin TSH Urine Color Urine Appearance Urine pH Ur Specific [place] Urine Protein Urine Glucose (UA) Urine Ketones Urine Blood Urine Nitrite Urine Bilirubin Urine Urobilinogen Ur Leukocyte Esterase COVID-19 Eval Order Covid19 Sent to [facility] COVID-19 PCR Nasopharyn COVID-19 PCR Influenza Type A (PCR) Neg for Influ A Influenza Type B (PCR) Neg for Influ B Blood Type Blood Type Recheck Antibody Screen Crossmatch 04/28/20 04/28/20 04/28/20 13:17 13:17 14:12 WBC RBC Hgb Hct MCV MCH MCHC RDW Std Deviation RDW Coeff of Sarah Plt Count MPV Immature Gran % (Auto) Neut % (Auto) Lymph % (Auto) [place] % (Auto) Eos % (Auto) Baso % (Auto) Neut # (Auto) Lymph # (Auto) [place] # (Auto) Eos # (Auto) Baso # (Auto) Immature Gran # (Auto) Polychromasia Microcytosis ESR PT INR APTT PTT Ratio VBG pH 7.38 VBG pCO2 36 L VBG pO2 35 VBG HCO3 21 VBG O2 Saturation < 60.0 VBG Base Excess -3.8 Barometric Pressure 736.2 Sodium Potassium Chloride Carbon Dioxide Anion Gap BUN Creatinine Est Cr Clr Drug Dosing Est GFR ( Amer) Est GFR (Non-Af Amer) BUN/Creatinine Ratio Glucose POC Glucose Lactate Calcium Magnesium Iron Transferrin Transferrin % Sat Ferritin Total Bilirubin AST ALT Alkaline Phosphatase Troponin I C-Reactive Protein NT-Pro-B Natriuret Pep Total Protein Albumin Globulin Albumin/Globulin Ratio Procalcitonin TSH Urine Color Urine Appearance Urine pH Ur Specific [place] Urine Protein Urine Glucose (UA) Urine Ketones Urine Blood Urine Nitrite Urine Bilirubin Urine Urobilinogen Ur Leukocyte Esterase COVID-19 Eval Order COVID-19 PCR NEGATIVE Nasopharyn COVID-19 PCR Cancelled Influenza Type A (PCR) Influenza Type B (PCR) Blood Type Blood Type Recheck Antibody Screen Crossmatch 04/28/20 04/28/20 04/28/20 14:12 14:12 14:12 WBC RBC Hgb Hct MCV MCH MCHC RDW Std Deviation RDW Coeff of Sarah Plt Count MPV Immature Gran % (Auto) Neut % (Auto) Lymph % (Auto) [place] % (Auto) Eos % (Auto) Baso % (Auto) Neut # (Auto) Lymph # (Auto) [place] # (Auto) Eos # (Auto) Baso # (Auto) Immature Gran # (Auto) Polychromasia Microcytosis ESR 11 PT INR APTT PTT Ratio VBG pH VBG pCO2 VBG pO2 VBG HCO3 VBG O2 Saturation VBG Base Excess Barometric Pressure Sodium Potassium Chloride Carbon Dioxide Anion Gap BUN Creatinine Est Cr Clr Drug Dosing Est GFR ( Amer) Est GFR (Non-Af Amer) BUN/Creatinine Ratio Glucose POC Glucose Lactate 1.6 Calcium Magnesium Iron Transferrin Transferrin % Sat Ferritin Total Bilirubin AST ALT Alkaline Phosphatase Troponin I C-Reactive Protein NT-Pro-B Natriuret Pep Total Protein Albumin Globulin Albumin/Globulin Ratio Procalcitonin TSH Urine Color Urine Appearance Urine pH Ur Specific [place] Urine Protein Urine Glucose (UA) Urine Ketones Urine Blood Urine Nitrite Urine Bilirubin Urine Urobilinogen Ur Leukocyte Esterase COVID-19 Eval Order COVID-19 PCR Nasopharyn COVID-19 PCR Influenza Type A (PCR) Influenza Type B (PCR) Blood Type O Positive Blood Type Recheck Antibody Screen NEGATIVE Crossmatch See Detail 04/28/20 04/28/20 04/28/20 14:20 14:27 16:15 WBC RBC Hgb Hct MCV MCH MCHC RDW Std Deviation RDW Coeff of Sarah Plt Count MPV Immature Gran % (Auto) Neut % (Auto) Lymph % (Auto) [place] % (Auto) Eos % (Auto) Baso % (Auto) Neut # (Auto) Lymph # (Auto) [place] # (Auto) Eos # (Auto) Baso # (Auto) Immature Gran # (Auto) Polychromasia Microcytosis ESR PT INR APTT PTT Ratio VBG pH VBG pCO2 VBG pO2 VBG HCO3 VBG O2 Saturation VBG Base Excess Barometric Pressure Sodium Potassium Chloride Carbon Dioxide Anion Gap BUN Creatinine Est Cr Clr Drug Dosing Est GFR ( Amer) Est GFR (Non-Af Amer) BUN/Creatinine Ratio Glucose POC Glucose Lactate Calcium Magnesium Iron Transferrin Transferrin % Sat Ferritin Total Bilirubin AST ALT Alkaline Phosphatase Troponin I C-Reactive Protein NT-Pro-B Natriuret Pep Total Protein Albumin Globulin Albumin/Globulin Ratio Procalcitonin TSH 1.080 Urine Color Yellow Urine Appearance Clear Urine pH 5.0 Ur Specific [place] 1.011 Urine Protein Negative Urine Glucose (UA) Negative Urine Ketones Negative Urine Blood Negative Urine Nitrite Negative Urine Bilirubin Negative Urine Urobilinogen Negative Ur Leukocyte Esterase Negative COVID-19 Eval Order COVID-19 PCR Nasopharyn COVID-19 PCR Influenza Type A (PCR) Influenza Type B (PCR) Blood Type Blood Type Recheck O Positive Antibody Screen Crossmatch 04/28/20 04/28/20 17:20 20:20 WBC RBC Hgb Hct MCV MCH MCHC RDW Std Deviation RDW Coeff of Sarah Plt Count MPV Immature Gran % (Auto) Neut % (Auto) Lymph % (Auto) [place] % (Auto) Eos % (Auto) Baso % (Auto) Neut # (Auto) Lymph # (Auto) [place] # (Auto) Eos # (Auto) Baso # (Auto) Immature Gran # (Auto) Polychromasia Microcytosis ESR PT INR APTT PTT Ratio VBG pH VBG pCO2 VBG pO2 VBG HCO3 VBG O2 Saturation VBG Base Excess Barometric Pressure Sodium Potassium Chloride Carbon Dioxide Anion Gap BUN Creatinine Est Cr Clr Drug Dosing Est GFR ( Amer) Est GFR (Non-Af Amer) BUN/Creatinine Ratio Glucose POC Glucose 276 H 119 H Lactate Calcium Magnesium Iron Transferrin Transferrin % Sat Ferritin Total Bilirubin AST ALT Alkaline Phosphatase Troponin I C-Reactive Protein NT-Pro-B Natriuret Pep Total Protein Albumin Globulin Albumin/Globulin Ratio Procalcitonin TSH Urine Color Urine Appearance Urine pH Ur Specific [place] Urine Protein Urine Glucose (UA) Urine Ketones Urine Blood Urine Nitrite Urine Bilirubin Urine Urobilinogen Ur Leukocyte Esterase COVID-19 Eval Order COVID-19 PCR Nasopharyn COVID-19 PCR Influenza Type A (PCR) Influenza Type B (PCR) Blood Type Blood Type Recheck Antibody Screen Crossmatch Diagnostic Findings 1. cxr: IMPRESSION: 1. Cardiomegaly with pulmonary vascular congestion and interstitial coarsening suggestive of pulmonary edema. 2. Small pleural effusions with bibasilar opacities suggestive of atelectasis versus pneumonitis. 2. EKG: my reading - NSR, NS ST changes lead III only Code Status & VTE Plan Code Status full VTE Prophylaxis Plan VTE Prophylaxis will be ordered: Yes PG Care Time/CCT Total # of Minutes Spent Total Time Spent with Patient: Total time spent is greater than 50% in coordination of care (as documented) at patient's floor/unit and/or counseling patient: Coding Level of Care Code 46597 Initial Inpt Care Lvl 3 Diagnoses Acute CHF I50.9 Heart failure type: unspecified Iron deficiency anemia D50.9 Iron deficiency anemia type: unspecified iron deficiency Microcytic anemia D50.9 Pulmonary edema J81.0 Chronicity: acute Elevated serum creatinine R79.89 High cholesterol E78.00 IDDM (insulin dependent diabetes mellitus) Hypertension I10 Hypertension type: essential hypertension BPH (benign prostatic hyperplasia) N40.1; R39.14 Lower urinary tract symptom presence: symptoms present Lower urinary tract symptom detail: incomplete bladder emptying Heme positive stool R19.5 Hemorrhoids K64.9 Hemorrhoid type: unspecified Diabetic peripheral neuropathy E11.42 DVT prophylaxis Z29.9 (1) BPH (benign prostatic hyperplasia) Lower urinary tract symptom presence: symptoms present Lower urinary tract symptom detail: incomplete bladder emptying Qualified Code(s): N40.1 - Benign prostatic hyperplasia with lower urinary tract symptoms; R39.14 - Feeling of incomplete bladder emptying (2) Acute CHF Heart failure type: unspecified Qualified Code(s): I50.9 - Heart failure, unspecified (3) Pulmonary edema Chronicity: acute Qualified Code(s): J81.0 - Acute pulmonary edema (4) Hemorrhoids Hemorrhoid type: unspecified Qualified Code(s): K64.9 - Unspecified hemorrhoids (5) Hypertension Hypertension type: essential hypertension Qualified Code(s): I10 - Essential (primary) hypertension (6) Iron deficiency anemia Iron deficiency anemia type: unspecified iron deficiency Qualified Code(s): D50.9 - Iron deficiency anemia, unspecified
[2020-04-28 16:10] LABS: Ferritin 6.2 ng/ml (8-388); Iron 10 mcg/dl (35-175); Transferrin 357 mg/dl (200-360); Transferrin Percent Saturation 2 % (20-50)
[2020-04-28 16:23] LABS: Appearance Urine Clear (Clear); Bilirubin Urine Negative (Negative); Blood Urine Negative (Negative); Color Urine Yellow; Glucose Urine UA Negative (Negative); Ketones Urine Negative (Negative); Leukocyte Esterase Urine Negative (Negative); Nitrite Urine Negative (Negative); Protein Urine Negative (Negative); Specific Gravity Urine 1.011 (1.000-1.030); Urobilinogen Urine Negative (Negative)
[2020-04-28] MEDS ORDERED: ACETAMINOPHEN 325 MG TAB PO PRN (16:57)
[2020-04-28] MEDS ORDERED: ONDANSETRON INJ 2 MG/ML 2 ML VIAL IV PRN (16:57)
[2020-04-28] MEDS ORDERED: NITROGLYCERIN SL 0.4 MG/TAB TAB SL PRN (16:57)
[2020-04-28] MEDS ORDERED: FUROSEMIDE 40 MG in SYRINGE 0 ML IV SCH (17:00)
[2020-04-28] MEDS ORDERED: GLUCOSE 10 TABS/TUBE PO PRN (17:15)
[2020-04-28] MEDS ORDERED: CARBOHYDRATES FOR HYPOGLYCEMIA PO PRN (17:15)
[2020-04-28] MEDS ORDERED: GLUCOSE 40% GEL 15 GM TUBE PO PRN (17:15)
[2020-04-28] MEDS ORDERED: GLUCAGON FOR INJ 1 MG VIAL IM PRN (17:15)
[2020-04-28] MEDS ORDERED: DEXTROSE 50% 50 ML SYRINGE IV PRN (17:15)
--- NOTE | 2020-04-28 17:20 | Electrocardiogram Report ---
Test Reason : Blood Pressure : / mmHG Vent. Rate : 063 BPM Atrial Rate : 063 BPM P-R Int : 164 ms QRS Dur : 084 ms QT Int : 432 ms P-R-T Axes : 032 028 033 degrees QTc Int : 442 ms Normal sinus rhythm Normal ECG No previous ECGs available Confirmed by Srinivasan Simon ([id number]) on 04/28/2020 5:19:44 PM Referred By: Richelle Mcdermott Confirmed By:Norman Simon
[2020-04-28] MEDS: INSULIN ASPART 100 UNITS/ML 3 ML PEN SC SCH ×2 (18:07→20:23)
[2020-04-28] MEDS: INSULIN GLARGINE SOLOSTAR 100 UNITS/ML 3 ML PEN SQ SCH (20:26)
[2020-04-28] MEDS: METOPROLOL TARTRATE 25 MG TAB PO SCH (21:14)
[2020-04-28] MEDS: ATORVASTATIN 40 MG TAB PO SCH (21:14)
[2020-04-28] MEDS: GABAPENTIN 100 MG CAP PO SCH (21:14)
[2020-04-28] MEDS: guaiFENesin 600 MG TABCR PO SCH (21:15)
[2020-04-28] MEDS: PANTOprazole 40 MG TAB PO SCH (21:15)
[2020-04-28] MEDS: HYDROCORTISONE ACETATE 25 MG SUPP PR SCH (21:23)
[2020-04-29 06:24] LABS: Hematocrit (blood only) 25.1 % (42-52); Hemoglobin 7.8 g/dL (14.0-18.0); Mean Corpuscular Hgb Conc 31.1 g/dL (32-36); Mean Corpuscular Volume 77.2 fL (80-100); Platelet Count 261 K/uL (130-400); RDW Coefficient of Variation 15.8 % (11.5-14.5); RDW Standard Deviation 44.7 fL (36.4-46.3); Red Blood Count 3.25 M/uL (4.7-6.1); White Blood Count 8.64 K/uL (4.8-10.8)
[2020-04-29 06:58] LABS: BUN Creatinine Ratio 15.1 (10-20); Calcium 8.1 mg/dl (8.5-10.1); Creatinine Clr Calc Pharmacy 37.8 ml/min; Potassium 3.9 mmol/L (3.5-5.1)
--- NOTE | 2020-04-29 08:17 | Ultrasound Report ---
US renal/blad retro comp HISTORY: 75 years-old Male acute renal failure, BPH; eval obstruction acute hematuria with acute yamel al failure COMPARISON: None TECHNIQUE: Multiple real-time sonographic images of the kidneys and urinary bladder were obtained ass essing grayscale appearance and color flow FINDINGS: Right kidney measures 11.7 x 4.8 x 4.7 cm and demonstrates mild diffuse cortical thinning. No right-s ided renal calculi, hydronephrosis or suspicious mass lesion. The left kidney measures 11.4 x 5.7 x 4 .5 cm and demonstrates no renal calculi or hydronephrosis. There is an ill-defined isoechoic focus in volving the upper pole left kidney measuring 1.2 x 0.9 x 1.0 cm without identifiable color flow. Mild diffuse wall thickening of the urinary bladder. Bilateral ureteral jets are noted. Incidental no te is made of layering echogenicities within the gallbladder suggestive of sludge and probable cholel ithiasis. Hepatic steatosis. IMPRESSION: 1. No renal calculi or hydronephrosis. 2. Indeterminate isoechoic focus involving the upper pole left kidney measuring up to 1.2 cm. Differe ntial considerations would include a complex cyst versus solid lesion. Correlation with a follow-up C T renal protocol recommended. 3. Mild nonspecific urinary bladder wall thickening may reflect chronic bladder outlet obstruction. C orrelate with urinalysis. 4. Hepatic steatosis. 5. Bladder sludge and probable cholelithiasis. ACT 112: Negative or not required by law. The above report was generated using voice recognition software. It may contain grammatical, syntax o r spelling errors. Electronically signed by: Yovani Greco M.D. 04/29/2020 8:16 AM
[2020-04-29] MEDS: HYDROCORTISONE ACETATE 25 MG SUPP PR SCH ×3 (08:22→21:13)
[2020-04-29] MEDS: TAMSULOSIN HCL 0.4 MG CAP PO SCH (08:22)
[2020-04-29] MEDS: GABAPENTIN 100 MG CAP PO SCH ×2 (08:22→21:13)
[2020-04-29] MEDS: METOPROLOL TARTRATE 25 MG TAB PO SCH ×2 (08:23→21:14)
[2020-04-29] MEDS: guaiFENesin 600 MG TABCR PO SCH ×2 (08:23→21:15)
[2020-04-29] MEDS: CHOLECALCIFEROL 1,000 UNITS 25 MCG TAB PO SCH (08:23)
[2020-04-29] MEDS: PANTOprazole 40 MG TAB PO SCH ×2 (08:24→21:15)
[2020-04-29] MEDS: CETIRIZINE HCL 10 MG TABLET PO SCH (08:24)
[2020-04-29] MEDS: INSULIN ASPART 100 UNITS/ML 3 ML PEN SC SCH ×4 (08:36→20:47)
[2020-04-29 08:46] LABS: Estimated Average Glucose 229 mg/dl; Hemoglobin A1C 9.6 % (4.5-5.6)
[2020-04-29] MEDS ORDERED: ASPIRIN 81 MG ECTAB PO SCH (09:00)
--- NOTE | 2020-04-29 09:40 | Gastrointestinal Consultation ---
Date of Consultation April 29, 2020 Assessment & Plan (1) Microcytic anemia: (2) Heme positive stool: Diff dx: PUD vs AVM vs diverticular bleed vs hemorrhoids vs malignancy vs other. 1. Recommend EGD for further evaluation but patient refuses consideration of EGD/colonoscopy. 2. Recommend transfusion to maintain hgb ~8. 3. Protonix 40 mg BID. 4. Continue supportive care. Thank you for allowing us to participate in the care of this pleasant patient. If you have any questions or concerns, please do not hesitate to contact us. Supervising Physician Co-Signing Physician Notes Agree with STEPHEN Jaime Abd: Soft, NT, ND, +BS Patient refuses invasive workup Continue Protonix 40 mg by mouth twice daily Discussed case with Dr. Lemus, and she will order CT scan of the abd/pelvis with PO contrast History of Present Illness Reason for Consultation: Symptomatic anemia Requesting Physician: Dr. Lozano Attending Physician: Alexandria Lemus MD History of Present Illness Patient is a pleasant 75 year-old male with a history of HTN, DMII, referred to the hospital for dyspnea. He was noted on arrival to be in acute CHF and with symptomatic anemia. Reports feeling quite short of breath with minimal exertion. Laboratory testing on arrival was notable for a significant anemia as follows: hemoglobin 6.2, hematocrit 20.7, and MCV 75. He states that he has been having gross bleeding with every bowel movement for at least 1 year. He attributes the bleeding to known external hemorrhoids. He has never had any formal endoscopic work up in the past and states he has been using [facility] occult [facility]. Denies any nausea or vomiting, abdominal pain or melena. He was transfused with 2 units of PRBCs. Most recent H&H was noted to be 7.8/25.1%. He did consume a regular diabetic diet this morning. Allergies Allergy/AdvReac Type Severity Reaction Status Date / Time No Known Allergies Allergy Unverified 04/28/20 14:54 Home Medications Home Medications Medication Instructions Recorded Confirmed Type amlodipine 10 mg PO DAILY 04/28/20 04/28/20 History aspirin 81 mg PO DAILY 04/28/20 04/28/20 History atenolol 25 mg PO DAILY 04/28/20 04/28/20 History atorvastatin 80 mg PO HS 04/28/20 04/28/20 History cetirizine 10 mg PO DAILY 04/28/20 04/28/20 History cholecalciferol (vitamin D3) 25 mcg PO DAILY 04/28/20 04/28/20 History etodolac 400 mg PO BID 04/28/20 04/28/20 History famotidine 20 mg PO DAILY 04/28/20 04/28/20 History gabapentin 100 mg PO BID 04/28/20 04/28/20 History hydrochlorothiazide 50 mg PO DAILY 04/28/20 04/28/20 History insulin aspart U-100 [Novolog 30 unit SUBCUT TID 04/28/20 04/28/20 History Flexpen U-100 Insulin] insulin glargine [Lantus Solostar 60 unit SUBCUT HS 04/28/20 04/28/20 History U-100 Insulin] lisinopril 40 mg PO DAILY 04/28/20 04/28/20 History Patient History Medical History DJD (degenerative joint disease), lumbar Hemorrhoids High cholesterol Hypertension IDDM (insulin dependent diabetes mellitus) Osteoarthritis Surgical History H/O foot surgery left - bone spur Hx of tonsillectomy Family History Mother Diabetes Hypertension Heart disease Father , unknown medical history No problems noted. Brother Hypertension Sister Hypertension Sister Hypertension Social History Smoking Status: Former smoker packs per day: 1; Years Smoked: 15; Smoking End Date: 1983; Second Hand Exposure: No; Do You Dip or Chew Tobacco: No; Tobacco Cessation Education Requested by Patient: No Hx Alcohol Use: Yes Alcohol type: beer and wine Hx Substance Use: No Preferred Language: Estonian Communication Ability: Effective Observatory Director Required: No Beliefs That Will Affect Care: None marital status: Current Living Situation: Spouse Current Living Situation Comment: lives in [place] with current occupational status: retired current occupation: worked for [employer] How many Children do You have: 4 How many Children do You have Comment: step-children Other Information That Helps Us Care for You: No Feels Safe at Home: Yes Safety Concerns: Feels Safe At This Time Assistive Devices: None Review of Systems Review of Systems: All systems reviewed & are unremarkable except as noted in HPI & below Physical Exam Constitutional: WD/WN, vitals as above well developed and well nourished Eyes: EOM intact bilaterally Neck: normal visual inspection Respiratory: normal respiratory effort; no respiratory distress Auscultation: + diminished lung sounds (bases) Cardiovascular: Rate/Rhythm: regular rate and regular rhythm Gastrointestinal (Abdomen): normal bowel sounds, soft, nontender, no hepatosplenomegaly Musculoskeletal: Extremities: extremities normal to inspection Skin: no rashes, warm and dry Psychiatric: A+Ox3, euthymic affect Results & Data ([facility]) Vital Signs (Past 12 Hours) Vital Signs Temp Pulse Pulse Resp BP BP Pulse Ox 04/29/20 08:09 37.1 C 72 19 139/74 91 04/29/20 04:36 36.7 C 67 20 111/54 L 90 04/29/20 00:00 37 C 70 70 22 122/69 90 04/28/20 23:07 72 107/68 94 04/28/20 22:48 72 129/71 91 04/28/20 21:58 71 126/68 93 Laboratory Results Abnormal lab results 04/28/20 04/28/20 04/28/20 Range/Units 13:15 13:15 13:15 RBC 2.76 L (4.7-6.1) M/uL Hgb 6.2 L* (14.0-18.0) g/dL Hct 20.7 L* (42-52) % MCV 75.0 L (80-100) fL MCH 22.5 L (25-34) pg MCHC 30.0 L (32-36) g/dL RDW Coeff of Sarah 14.6 H (11.5-14.5) % MPV 10.6 H (7.4-10.4) fL Neut # (Auto) 8.37 H (1.4-6.5) K/uL Lymph # (Auto) 0.77 L (1.2-3.4) K/uL Terry # (Auto) 0.70 H (0.11-0.59) K/uL VBG pCO2 (38-50) mmHg Sodium 135 L (136-145) mmol/L BUN 32 H (7-18) mg/dl Creatinine 2.14 H (0.6-1.4) mg/dl Glucose 255 H (70-99) mg/dl POC Glucose (70-99) mg/dl Hemoglobin A1c (4.5-5.6) % Calcium 8.1 L (8.5-10.1) mg/dl Magnesium 2.5 H (1.8-2.4) mg/dl Iron 10 L (35-175) mcg/dl Transferrin % Sat 2 L (20-50) % Ferritin 6.2 L (8-388) ng/ml Alkaline Phosphatase 118 H (45-117) U/L C-Reactive Protein 0.64 H (0-0.29) mg/dl NT-Pro-B Natriuret Pep 1125 H (0-900) pg/ml Albumin 2.9 L (3.4-5.0) gm/dl Albumin/Globulin Ratio 0.7 L (0.9-2) Crossmatch 04/28/20 04/28/20 04/28/20 Range/Units 14:12 14:12 17:20 RBC (4.7-6.1) M/uL Hgb (14.0-18.0) g/dL Hct (42-52) % MCV (80-100) fL MCH (25-34) pg MCHC (32-36) g/dL RDW Coeff of Sarah (11.5-14.5) % MPV (7.4-10.4) fL Neut # (Auto) (1.4-6.5) K/uL Lymph # (Auto) (1.2-3.4) K/uL Terry # (Auto) (0.11-0.59) K/uL VBG pCO2 36 L (38-50) mmHg Sodium (136-145) mmol/L BUN (7-18) mg/dl Creatinine (0.6-1.4) mg/dl Glucose (70-99) mg/dl POC Glucose 276 H (70-99) mg/dl Hemoglobin A1c (4.5-5.6) % Calcium (8.5-10.1) mg/dl Magnesium (1.8-2.4) mg/dl Iron (35-175) mcg/dl Transferrin % Sat (20-50) % Ferritin (8-388) ng/ml Alkaline Phosphatase (45-117) U/L C-Reactive Protein (0-0.29) mg/dl NT-Pro-B Natriuret Pep (0-900) pg/ml Albumin (3.4-5.0) gm/dl Albumin/Globulin Ratio (0.9-2) Crossmatch See Detail 04/28/20 04/29/20 04/29/20 Range/Units 20:20 05:21 05:21 RBC 3.25 L (4.7-6.1) M/uL Hgb 7.8 L (14.0-18.0) g/dL Hct 25.1 L (42-52) % MCV 77.2 L (80-100) fL MCH 24.0 L (25-34) pg MCHC 31.1 L (32-36) g/dL RDW Coeff of Sarah 15.8 H (11.5-14.5) % MPV 11.0 H (7.4-10.4) fL Neut # (Auto) (1.4-6.5) K/uL Lymph # (Auto) (1.2-3.4) K/uL Terry # (Auto) (0.11-0.59) K/uL VBG pCO2 (38-50) mmHg Sodium (136-145) mmol/L BUN (7-18) mg/dl Creatinine (0.6-1.4) mg/dl Glucose (70-99) mg/dl POC Glucose 119 H (70-99) mg/dl Hemoglobin A1c 9.6 H (4.5-5.6) % Calcium (8.5-10.1) mg/dl Magnesium (1.8-2.4) mg/dl Iron (35-175) mcg/dl Transferrin % Sat (20-50) % Ferritin (8-388) ng/ml Alkaline Phosphatase (45-117) U/L C-Reactive Protein (0-0.29) mg/dl NT-Pro-B Natriuret Pep (0-900) pg/ml Albumin (3.4-5.0) gm/dl Albumin/Globulin Ratio (0.9-2) Crossmatch 10/06/20 10/06/20 Range/Units 05:21 07:24 RBC (4.7-6.1) M/uL Hgb (14.0-18.0) g/dL Hct (42-52) % MCV (80-100) fL MCH (25-34) pg MCHC (32-36) g/dL RDW Coeff of Sarah (11.5-14.5) % MPV (7.4-10.4) fL Neut # (Auto) (1.4-6.5) K/uL Lymph # (Auto) (1.2-3.4) K/uL Terry # (Auto) (0.11-0.59) K/uL VBG pCO2 (38-50) mmHg Sodium (136-145) mmol/L BUN 31 H (7-18) mg/dl Creatinine 2.06 H (0.6-1.4) mg/dl Glucose (70-99) mg/dl POC Glucose 102 H (70-99) mg/dl Hemoglobin A1c (4.5-5.6) % Calcium 8.1 L (8.5-10.1) mg/dl Magnesium (1.8-2.4) mg/dl Iron (35-175) mcg/dl Transferrin % Sat (20-50) % Ferritin (8-388) ng/ml Alkaline Phosphatase (45-117) U/L C-Reactive Protein (0-0.29) mg/dl NT-Pro-B Natriuret Pep (0-900) pg/ml Albumin (3.4-5.0) gm/dl Albumin/Globulin Ratio (0.9-2) Crossmatch PG Care Time/CCT Total # of Minutes Spent Total Time Spent with Patient: Total time spent is greater than 50% in coordination of care (as documented) at patient's floor/unit and/or counseling patient: Coding Level of Care Code 62220 Initial Inpt Care Lvl 3 Diagnoses Microcytic anemia D50.9 Heme positive stool R19.5
--- NOTE | 2020-04-29 13:06 | Hospitalist Progress Note ---
Date of Service April 29, 2020 Assessment & Plan (1) Iron deficiency anemia: Severe Fe deficiency -- ferritin <5, presenting Hb 6.2. Chronic rectal bleeding from hemorrhoids may be the culprit but I cannot rule out GI bleeding from other source. Hemoglobin now up to 7.8 after 2 units PRBCs on 04/28 Most likely lower GI bleeding-no need for PPI most likely but will continue as recommended by GI CT abdomen/pelvis without obvious mass in the bowels, but with multiple hypodense liver and renal lesions which could be cysts versus other more concerning lesions Appreciate GI consultation-plan for EGD and colonoscopy tomorrow Follow CBC in the morning -Hold home aspirin (2) Elevated serum creatinine: Cr at presentation 2.1 and stable unknown baseline; patient has never been told he had chronic kidney disease. Has severely uncontrolled diabetes and hypertension-could very well have chronic kidney disease with some acute worsening due to hypovolemia from blood loss and severe anemia Renal ultrasound without obstruction Continue to HOLD etodolac, FELIX inhibitor, and HCTZ -Follow BMP in the morning now that he is received 2 L of PRBCs and blood pressures are improved (3) Acute CHF: Patient clinically and radiographically has evidence of acute CHF. Echocardiogram with preserved EF, most likely acute on chronic diastolic CHF, severe anemia playing a role s/p lasix 40mg x 1 given in ER by ER attending and was given an additional dose of IV Lasix after his PRBC transfusion. Shortness of breath is now completely resolved after transfusion and IV Lasix Not hypoxic Changed home atenolol to metoprolol which would be better given his renal failure. Fluid restrict; salt restrict. Daily standing scale weights. He is now euvolemic, no further diuretics needed (4) Heme positive stool: trace, per ER attending. likely due to hemorrhoids. cannot rule out other GI tract pathology. GI consult as above-plan for EGD and colonoscopy tomorrow. (5) Pulmonary edema: in the setting of acute CHF. see above. diuresed and improved. (6) High cholesterol: Cont statin (lipitor 80mg daily). (7) IDDM (insulin dependent diabetes mellitus): Long-standing. Uncontrolled Appreciate CDE consultation Cont lantus 60 units daily. Cont novolog -- correction factor 12, carb ratio 1:4. Hemoglobin A1c here is elevated at 9.6% which he reports is an improvement from his previous. (8) Hypertension: Blood pressure is now mildly elevated with holding home blood pressure medicines -Continue metoprolol as above Continue to hold ACEi and HCTZ for MALINDA Hold amlodipine for now but can likely restart tomorrow (9) Hemorrhoids: active, copious bleeding at home. anusol suppos TID. Gi consult. (10) Diabetic peripheral neuropathy: Cont gabapentin. (11) Renal lesion: Noted on renal ultrasound 1.2 cm indeterminate lesion on left kidney CT abdomen/pelvis also with multiple bilateral hypodense lesions could be cysts of the kidneys Follow as an outpatient (12) Liver lesion: As above, multiple hypodense lesions possibly cysts on liver Follow as an outpatient Consider liver ultrasound (13) Lytic lesion of bone on x-ray: Noted on CT scan to have 12 mm L3 vertebral body lytic bone lesion on a noncontrast scan, radiologist noted could be hemangioma versus other Await colonoscopy and EGD results Consider bone scan as an outpatient (14) Fatty liver: Noted on CT scan Needs weight loss and better diabetes control (15) Cholelithiasis: Noted incidentally, asymptomatic (16) BPH (benign prostatic hyperplasia): Severe symptoms by history. Started flomax 0.4mg daily here. This may account for his elevated creatinine No obstruction on renal/bladder ultrasound (17) DVT prophylaxis: hold on chemical means for now due to rectal bleeding SCD, ambulate Disposition-continued stay on PCU Admission and Anticipated Discharge Date Admission Date: April 28, 2020 Subjective No rectal bleeding today. No abd pain. No chest pain and SOB is now resolved. He reports 3 weeks of daily rectal BRBPR, fills toilet bowl and sometimes small clots. Is declining a colonoscopy unless absolutely necessary. Is willing to have a CT abd/pel. I discussed case with GI Denies lightheadedness. No nausea. No previous h/o kidney problems he is aware of. Tele with NSR rate in the 60s, some PVCs Review of Systems Review of Systems: All systems reviewed & are unremarkable except as noted in HPI & below Physical Exam Constitutional: WD/WN, vitals as above Eyes: + anicteric sclerae Neck: trachea midline, no thyromegaly Respiratory: normal respiratory effort, lungs clear to auscultation Cardiovascular: RRR, no murmur, no edema Chest (Breasts): Chest: normal inspection of chest Gastrointestinal (Abdomen): normal bowel sounds, soft, nontender, no hepatosplenomegaly Musculoskeletal: Extremities: extremities normal to inspection; no cyanosis and no clubbing Skin: no rashes, warm and dry Neurologic: moves all extremities and awake; no focal motor deficits Psychiatric: A+Ox3, euthymic affect Lymphatic: no lymphedema Results & Data Results & Data ([facility]) Vital Signs (Past 12 Hours) Vital Signs Temp Pulse Resp BP Pulse Ox 04/29/20 12:13 37.1 C 67 19 130/70 92 04/29/20 08:09 37.1 C 72 19 139/74 91 04/29/20 04:36 36.7 C 67 20 111/54 L 90 Laboratory Results 04/29/20 04/29/20 04/29/20 Range/Units 11:43 07:24 05:21 WBC (4.8-10.8) K/uL RBC (4.7-6.1) M/uL Hgb (14.0-18.0) g/dL Hct (42-52) % MCV (80-100) fL MCH (25-34) pg MCHC (32-36) g/dL RDW Std Deviation (36.4-46.3) fL RDW Coeff of Sarah (11.5-14.5) % Plt Count (130-400) K/uL MPV (7.4-10.4) fL Immature Gran % (Auto) % Neut % (Auto) % Lymph % (Auto) % [place] % (Auto) % Eos % (Auto) % Baso % (Auto) % Neut # (Auto) (1.4-6.5) K/uL Lymph # (Auto) (1.2-3.4) K/uL [place] # (Auto) (0.11-0.59) K/uL Eos # (Auto) (0-0.5) K/uL Baso # (Auto) (0-0.2) K/uL Immature Gran # (Auto) (0.00-0.02) K/uL Polychromasia Microcytosis ESR (0-14) mm/hr PT (9.0-12.0) Seconds INR (0.9-1.1) APTT (21.0-31.0) Seconds PTT Ratio VBG pH (7.36-7.41) VBG pCO2 (38-50) mmHg VBG pO2 mmHg VBG HCO3 mmol/L VBG O2 Saturation % VBG Base Excess mEq/L Barometric Pressure mm/Hg Sodium 139 (136-145) mmol/L Potassium 3.9 (3.5-5.1) mmol/L Chloride 107 (98-107) mmol/L Carbon Dioxide 25 (21-32) mmol/L Anion Gap 7.0 (3-11) BUN 31 H (7-18) mg/dl Creatinine 2.06 H (0.6-1.4) mg/dl Est Cr Clr Drug Dosing 37.8 ml/min Est GFR ( Amer) 36.0 Est GFR (Non-Af Amer) 31.0 BUN/Creatinine Ratio 15.1 (10-20) Glucose 94 (70-99) mg/dl POC Glucose 108 H 102 H (70-99) mg/dl Estimat Average Glucose mg/dl Hemoglobin A1c (4.5-5.6) % Lactate (0.4-2.0) mmol/L Calcium 8.1 L (8.5-10.1) mg/dl Magnesium (1.8-2.4) mg/dl Iron (35-175) mcg/dl Transferrin (200-360) mg/dl Transferrin % Sat (20-50) % Ferritin (8-388) ng/ml Total Bilirubin (0.2-1) mg/dl AST (15-37) U/L ALT (12-78) U/L Alkaline Phosphatase (45-117) U/L Troponin I (0-0.045) ng/ml C-Reactive Protein (0-0.29) mg/dl NT-Pro-B Natriuret Pep (0-900) pg/ml Total Protein (6.4-8.2) gm/dl Albumin (3.4-5.0) gm/dl Globulin (2.5-4.0) gm/dl Albumin/Globulin Ratio (0.9-2) Procalcitonin (0-0.5) ng/ml TSH (0.300-4.500) uIu/ml Urine Color Urine Appearance (Clear) Urine pH (4.5-7.5) Ur Specific [place] (1.000-1.030) Urine Protein (Negative) Urine Glucose (UA) (Negative) Urine Ketones (Negative) Urine Blood (Negative) Urine Nitrite (Negative) Urine Bilirubin (Negative) Urine Urobilinogen (Negative) Ur Leukocyte Esterase (Negative) COVID-19 Eval Order COVID-19 PCR (Negative) Nasopharyn COVID-19 PCR Influenza Type A (PCR) (Neg) Influenza Type B (PCR) (Neg) Blood Type Blood Type Recheck Antibody Screen Crossmatch 04/29/20 04/29/20 04/28/20 Range/Units 05:21 05:21 20:20 WBC 8.64 (4.8-10.8) K/uL RBC 3.25 L (4.7-6.1) M/uL Hgb 7.8 L (14.0-18.0) g/dL Hct 25.1 L (42-52) % MCV 77.2 L (80-100) fL MCH 24.0 L (25-34) pg MCHC 31.1 L (32-36) g/dL RDW Std Deviation 44.7 (36.4-46.3) fL RDW Coeff of Sarah 15.8 H (11.5-14.5) % Plt Count 261 (130-400) K/uL MPV 11.0 H (7.4-10.4) fL Immature Gran % (Auto) % Neut % (Auto) % Lymph % (Auto) % [place] % (Auto) % Eos % (Auto) % Baso % (Auto) % Neut # (Auto) (1.4-6.5) K/uL Lymph # (Auto) (1.2-3.4) K/uL [place] # (Auto) (0.11-0.59) K/uL Eos # (Auto) (0-0.5) K/uL Baso # (Auto) (0-0.2) K/uL Immature Gran # (Auto) (0.00-0.02) K/uL Polychromasia Microcytosis ESR (0-14) mm/hr PT (9.0-12.0) Seconds INR (0.9-1.1) APTT (21.0-31.0) Seconds PTT Ratio VBG pH (7.36-7.41) VBG pCO2 (38-50) mmHg VBG pO2 mmHg VBG HCO3 mmol/L VBG O2 Saturation % VBG Base Excess mEq/L Barometric Pressure mm/Hg Sodium (136-145) mmol/L Potassium (3.5-5.1) mmol/L Chloride (98-107) mmol/L Carbon Dioxide (21-32) mmol/L Anion Gap (3-11) BUN (7-18) mg/dl Creatinine (0.6-1.4) mg/dl Est Cr Clr Drug Dosing ml/min Est GFR ( Amer) Est GFR (Non-Af Amer) BUN/Creatinine Ratio (10-20) Glucose (70-99) mg/dl POC Glucose 119 H (70-99) mg/dl Estimat Average Glucose 229 mg/dl Hemoglobin A1c 9.6 H (4.5-5.6) % Lactate (0.4-2.0) mmol/L Calcium (8.5-10.1) mg/dl Magnesium (1.8-2.4) mg/dl Iron (35-175) mcg/dl Transferrin (200-360) mg/dl Transferrin % Sat (20-50) % Ferritin (8-388) ng/ml Total Bilirubin (0.2-1) mg/dl AST (15-37) U/L ALT (12-78) U/L Alkaline Phosphatase (45-117) U/L Troponin I (0-0.045) ng/ml C-Reactive Protein (0-0.29) mg/dl NT-Pro-B Natriuret Pep (0-900) pg/ml Total Protein (6.4-8.2) gm/dl Albumin (3.4-5.0) gm/dl Globulin (2.5-4.0) gm/dl Albumin/Globulin Ratio (0.9-2) Procalcitonin (0-0.5) ng/ml TSH (0.300-4.500) uIu/ml Urine Color Urine Appearance (Clear) Urine pH (4.5-7.5) Ur Specific [place] (1.000-1.030) Urine Protein (Negative) Urine Glucose (UA) (Negative) Urine Ketones (Negative) Urine Blood (Negative) Urine Nitrite (Negative) Urine Bilirubin (Negative) Urine Urobilinogen (Negative) Ur Leukocyte Esterase (Negative) COVID-19 Eval Order COVID-19 PCR (Negative) Nasopharyn COVID-19 PCR Influenza Type A (PCR) (Neg) Influenza Type B (PCR) (Neg) Blood Type Blood Type Recheck Antibody Screen Crossmatch 04/28/20 04/28/20 04/28/20 Range/Units 17:20 16:15 14:27 WBC (4.8-10.8) K/uL RBC (4.7-6.1) M/uL Hgb (14.0-18.0) g/dL Hct (42-52) % MCV (80-100) fL MCH (25-34) pg MCHC (32-36) g/dL RDW Std Deviation (36.4-46.3) fL RDW Coeff of Sarah (11.5-14.5) % Plt Count (130-400) K/uL MPV (7.4-10.4) fL Immature Gran % (Auto) % Neut % (Auto) % Lymph % (Auto) % [place] % (Auto) % Eos % (Auto) % Baso % (Auto) % Neut # (Auto) (1.4-6.5) K/uL Lymph # (Auto) (1.2-3.4) K/uL [place] # (Auto) (0.11-0.59) K/uL Eos # (Auto) (0-0.5) K/uL Baso # (Auto) (0-0.2) K/uL Immature Gran # (Auto) (0.00-0.02) K/uL Polychromasia Microcytosis ESR (0-14) mm/hr PT (9.0-12.0) Seconds INR (0.9-1.1) APTT (21.0-31.0) Seconds PTT Ratio VBG pH (7.36-7.41) VBG pCO2 (38-50) mmHg VBG pO2 mmHg VBG HCO3 mmol/L VBG O2 Saturation % VBG Base Excess mEq/L Barometric Pressure mm/Hg Sodium (136-145) mmol/L Potassium (3.5-5.1) mmol/L Chloride (98-107) mmol/L Carbon Dioxide (21-32) mmol/L Anion Gap (3-11) BUN (7-18) mg/dl Creatinine (0.6-1.4) mg/dl Est Cr Clr Drug Dosing ml/min Est GFR ( Amer) Est GFR (Non-Af Amer) BUN/Creatinine Ratio (10-20) Glucose (70-99) mg/dl POC Glucose 276 H (70-99) mg/dl Estimat Average Glucose mg/dl Hemoglobin A1c (4.5-5.6) % Lactate (0.4-2.0) mmol/L Calcium (8.5-10.1) mg/dl Magnesium (1.8-2.4) mg/dl Iron (35-175) mcg/dl Transferrin (200-360) mg/dl Transferrin % Sat (20-50) % Ferritin (8-388) ng/ml Total Bilirubin (0.2-1) mg/dl AST (15-37) U/L ALT (12-78) U/L Alkaline Phosphatase (45-117) U/L Troponin I (0-0.045) ng/ml C-Reactive Protein (0-0.29) mg/dl NT-Pro-B Natriuret Pep (0-900) pg/ml Total Protein (6.4-8.2) gm/dl Albumin (3.4-5.0) gm/dl Globulin (2.5-4.0) gm/dl Albumin/Globulin Ratio (0.9-2) Procalcitonin (0-0.5) ng/ml TSH (0.300-4.500) uIu/ml Urine Color Yellow Urine Appearance Clear (Clear) Urine pH 5.0 (4.5-7.5) Ur Specific [place] 1.011 (1.000-1.030) Urine Protein Negative (Negative) Urine Glucose (UA) Negative (Negative) Urine Ketones Negative (Negative) Urine Blood Negative (Negative) Urine Nitrite Negative (Negative) Urine Bilirubin Negative (Negative) Urine Urobilinogen Negative (Negative) Ur Leukocyte Esterase Negative (Negative) COVID-19 Eval Order COVID-19 PCR (Negative) Nasopharyn COVID-19 PCR Influenza Type A (PCR) (Neg) Influenza Type B (PCR) (Neg) Blood Type Blood Type Recheck O Positive Antibody Screen Crossmatch 04/28/20 04/28/20 04/28/20 Range/Units 14:20 14:12 14:12 WBC (4.8-10.8) K/uL RBC (4.7-6.1) M/uL Hgb (14.0-18.0) g/dL Hct (42-52) % MCV (80-100) fL MCH (25-34) pg MCHC (32-36) g/dL RDW Std Deviation (36.4-46.3) fL RDW Coeff of Sarah (11.5-14.5) % Plt Count (130-400) K/uL MPV (7.4-10.4) fL Immature Gran % (Auto) % Neut % (Auto) % Lymph % (Auto) % [place] % (Auto) % Eos % (Auto) % Baso % (Auto) % Neut # (Auto) (1.4-6.5) K/uL Lymph # (Auto) (1.2-3.4) K/uL [place] # (Auto) (0.11-0.59) K/uL Eos # (Auto) (0-0.5) K/uL Baso # (Auto) (0-0.2) K/uL Immature Gran # (Auto) (0.00-0.02) K/uL Polychromasia Microcytosis ESR 11 (0-14) mm/hr PT (9.0-12.0) Seconds INR (0.9-1.1) APTT (21.0-31.0) Seconds PTT Ratio VBG pH (7.36-7.41) VBG pCO2 (38-50) mmHg VBG pO2 mmHg VBG HCO3 mmol/L VBG O2 Saturation % VBG Base Excess mEq/L Barometric Pressure mm/Hg Sodium (136-145) mmol/L Potassium (3.5-5.1) mmol/L Chloride (98-107) mmol/L Carbon Dioxide (21-32) mmol/L Anion Gap (3-11) BUN (7-18) mg/dl Creatinine (0.6-1.4) mg/dl Est Cr Clr Drug Dosing ml/min Est GFR ( Amer) Est GFR (Non-Af Amer) BUN/Creatinine Ratio (10-20) Glucose (70-99) mg/dl POC Glucose (70-99) mg/dl Estimat Average Glucose mg/dl Hemoglobin A1c (4.5-5.6) % Lactate (0.4-2.0) mmol/L Calcium (8.5-10.1) mg/dl Magnesium (1.8-2.4) mg/dl Iron (35-175) mcg/dl Transferrin (200-360) mg/dl Transferrin % Sat (20-50) % Ferritin (8-388) ng/ml Total Bilirubin (0.2-1) mg/dl AST (15-37) U/L ALT (12-78) U/L Alkaline Phosphatase (45-117) U/L Troponin I (0-0.045) ng/ml C-Reactive Protein (0-0.29) mg/dl NT-Pro-B Natriuret Pep (0-900) pg/ml Total Protein (6.4-8.2) gm/dl Albumin (3.4-5.0) gm/dl Globulin (2.5-4.0) gm/dl Albumin/Globulin Ratio (0.9-2) Procalcitonin (0-0.5) ng/ml TSH 1.080 (0.300-4.500) uIu/ml Urine Color Urine Appearance (Clear) Urine pH (4.5-7.5) Ur Specific [place] (1.000-1.030) Urine Protein (Negative) Urine Glucose (UA) (Negative) Urine Ketones (Negative) Urine Blood (Negative) Urine Nitrite (Negative) Urine Bilirubin (Negative) Urine Urobilinogen (Negative) Ur Leukocyte Esterase (Negative) COVID-19 Eval Order COVID-19 PCR (Negative) Nasopharyn COVID-19 PCR Influenza Type A (PCR) (Neg) Influenza Type B (PCR) (Neg) Blood Type O Positive Blood Type Recheck Antibody Screen NEGATIVE Crossmatch See Detail 04/28/20 04/28/20 04/28/20 Range/Units 14:12 14:12 13:17 WBC (4.8-10.8) K/uL RBC (4.7-6.1) M/uL Hgb (14.0-18.0) g/dL Hct (42-52) % MCV (80-100) fL MCH (25-34) pg MCHC (32-36) g/dL RDW Std Deviation (36.4-46.3) fL RDW Coeff of Sarah (11.5-14.5) % Plt Count (130-400) K/uL MPV (7.4-10.4) fL Immature Gran % (Auto) % Neut % (Auto) % Lymph % (Auto) % [place] % (Auto) % Eos % (Auto) % Baso % (Auto) % Neut # (Auto) (1.4-6.5) K/uL Lymph # (Auto) (1.2-3.4) K/uL [place] # (Auto) (0.11-0.59) K/uL Eos # (Auto) (0-0.5) K/uL Baso # (Auto) (0-0.2) K/uL Immature Gran # (Auto) (0.00-0.02) K/uL Polychromasia Microcytosis ESR (0-14) mm/hr PT (9.0-12.0) Seconds INR (0.9-1.1) APTT (21.0-31.0) Seconds PTT Ratio VBG pH 7.38 (7.36-7.41) VBG pCO2 36 L (38-50) mmHg VBG pO2 35 mmHg VBG HCO3 21 mmol/L VBG O2 Saturation < 60.0 % VBG Base Excess -3.8 mEq/L Barometric Pressure 736.2 mm/Hg Sodium (136-145) mmol/L Potassium (3.5-5.1) mmol/L Chloride (98-107) mmol/L Carbon Dioxide (21-32) mmol/L Anion Gap (3-11) BUN (7-18) mg/dl Creatinine (0.6-1.4) mg/dl Est Cr Clr Drug Dosing ml/min Est GFR ( Amer) Est GFR (Non-Af Amer) BUN/Creatinine Ratio (10-20) Glucose (70-99) mg/dl POC Glucose (70-99) mg/dl Estimat Average Glucose mg/dl Hemoglobin A1c (4.5-5.6) % Lactate 1.6 (0.4-2.0) mmol/L Calcium (8.5-10.1) mg/dl Magnesium (1.8-2.4) mg/dl Iron (35-175) mcg/dl Transferrin (200-360) mg/dl Transferrin % Sat (20-50) % Ferritin (8-388) ng/ml Total Bilirubin (0.2-1) mg/dl AST (15-37) U/L ALT (12-78) U/L Alkaline Phosphatase (45-117) U/L Troponin I (0-0.045) ng/ml C-Reactive Protein (0-0.29) mg/dl NT-Pro-B Natriuret Pep (0-900) pg/ml Total Protein (6.4-8.2) gm/dl Albumin (3.4-5.0) gm/dl Globulin (2.5-4.0) gm/dl Albumin/Globulin Ratio (0.9-2) Procalcitonin (0-0.5) ng/ml TSH (0.300-4.500) uIu/ml Urine Color Urine Appearance (Clear) Urine pH (4.5-7.5) Ur Specific [place] (1.000-1.030) Urine Protein (Negative) Urine Glucose (UA) (Negative) Urine Ketones (Negative) Urine Blood (Negative) Urine Nitrite (Negative) Urine Bilirubin (Negative) Urine Urobilinogen (Negative) Ur Leukocyte Esterase (Negative) COVID-19 Eval Order COVID-19 PCR NEGATIVE (Negative) Nasopharyn COVID-19 PCR Influenza Type A (PCR) (Neg) Influenza Type B (PCR) (Neg) Blood Type Blood Type Recheck Antibody Screen Crossmatch 04/28/20 04/28/20 04/28/20 Range/Units 13:17 13:17 13:17 WBC (4.8-10.8) K/uL RBC (4.7-6.1) M/uL Hgb (14.0-18.0) g/dL Hct (42-52) % MCV (80-100) fL MCH (25-34) pg MCHC (32-36) g/dL RDW Std Deviation (36.4-46.3) fL RDW Coeff of Sarah (11.5-14.5) % Plt Count (130-400) K/uL MPV (7.4-10.4) fL Immature Gran % (Auto) % Neut % (Auto) % Lymph % (Auto) % [place] % (Auto) % Eos % (Auto) % Baso % (Auto) % Neut # (Auto) (1.4-6.5) K/uL Lymph # (Auto) (1.2-3.4) K/uL [place] # (Auto) (0.11-0.59) K/uL Eos # (Auto) (0-0.5) K/uL Baso # (Auto) (0-0.2) K/uL Immature Gran # (Auto) (0.00-0.02) K/uL Polychromasia Microcytosis ESR (0-14) mm/hr PT (9.0-12.0) Seconds INR (0.9-1.1) APTT (21.0-31.0) Seconds PTT Ratio VBG pH (7.36-7.41) VBG pCO2 (38-50) mmHg VBG pO2 mmHg VBG HCO3 mmol/L VBG O2 Saturation % VBG Base Excess mEq/L Barometric Pressure mm/Hg Sodium (136-145) mmol/L Potassium (3.5-5.1) mmol/L Chloride (98-107) mmol/L Carbon Dioxide (21-32) mmol/L Anion Gap (3-11) BUN (7-18) mg/dl Creatinine (0.6-1.4) mg/dl Est Cr Clr Drug Dosing ml/min Est GFR ( Amer) Est GFR (Non-Af Amer) BUN/Creatinine Ratio (10-20) Glucose (70-99) mg/dl POC Glucose (70-99) mg/dl Estimat Average Glucose mg/dl Hemoglobin A1c (4.5-5.6) % Lactate (0.4-2.0) mmol/L Calcium (8.5-10.1) mg/dl Magnesium (1.8-2.4) mg/dl Iron (35-175) mcg/dl Transferrin (200-360) mg/dl Transferrin % Sat (20-50) % Ferritin (8-388) ng/ml Total Bilirubin (0.2-1) mg/dl AST (15-37) U/L ALT (12-78) U/L Alkaline Phosphatase (45-117) U/L Troponin I (0-0.045) ng/ml C-Reactive Protein (0-0.29) mg/dl NT-Pro-B Natriuret Pep (0-900) pg/ml Total Protein (6.4-8.2) gm/dl Albumin (3.4-5.0) gm/dl Globulin (2.5-4.0) gm/dl Albumin/Globulin Ratio (0.9-2) Procalcitonin (0-0.5) ng/ml TSH (0.300-4.500) uIu/ml Urine Color Urine Appearance (Clear) Urine pH (4.5-7.5) Ur Specific [place] (1.000-1.030) Urine Protein (Negative) Urine Glucose (UA) (Negative) Urine Ketones (Negative) Urine Blood (Negative) Urine Nitrite (Negative) Urine Bilirubin (Negative) Urine Urobilinogen (Negative) Ur Leukocyte Esterase (Negative) COVID-19 Eval Order Covid19 Sent to [facility] COVID-19 PCR (Negative) Nasopharyn COVID-19 PCR Cancelled Influenza Type A (PCR) Neg for Influ A (Neg) Influenza Type B (PCR) Neg for Influ B (Neg) Blood Type Blood Type Recheck Antibody Screen Crossmatch 04/28/20 04/28/20 04/28/20 Range/Units 13:15 13:15 13:15 WBC (4.8-10.8) K/uL RBC (4.7-6.1) M/uL Hgb (14.0-18.0) g/dL Hct (42-52) % MCV (80-100) fL MCH (25-34) pg MCHC (32-36) g/dL RDW Std Deviation (36.4-46.3) fL RDW Coeff of Sarah (11.5-14.5) % Plt Count (130-400) K/uL MPV (7.4-10.4) fL Immature Gran % (Auto) % Neut % (Auto) % Lymph % (Auto) % [place] % (Auto) % Eos % (Auto) % Baso % (Auto) % Neut # (Auto) (1.4-6.5) K/uL Lymph # (Auto) (1.2-3.4) K/uL [place] # (Auto) (0.11-0.59) K/uL Eos # (Auto) (0-0.5) K/uL Baso # (Auto) (0-0.2) K/uL Immature Gran # (Auto) (0.00-0.02) K/uL Polychromasia Microcytosis ESR (0-14) mm/hr PT (9.0-12.0) Seconds INR (0.9-1.1) APTT (21.0-31.0) Seconds PTT Ratio VBG pH (7.36-7.41) VBG pCO2 (38-50) mmHg VBG pO2 mmHg VBG HCO3 mmol/L VBG O2 Saturation % VBG Base Excess mEq/L Barometric Pressure mm/Hg Sodium (136-145) mmol/L Potassium (3.5-5.1) mmol/L Chloride (98-107) mmol/L Carbon Dioxide (21-32) mmol/L Anion Gap (3-11) BUN (7-18) mg/dl Creatinine (0.6-1.4) mg/dl Est Cr Clr Drug Dosing ml/min Est GFR ( Amer) Est GFR (Non-Af Amer) BUN/Creatinine Ratio (10-20) Glucose (70-99) mg/dl POC Glucose (70-99) mg/dl Estimat Average Glucose mg/dl Hemoglobin A1c (4.5-5.6) % Lactate (0.4-2.0) mmol/L Calcium (8.5-10.1) mg/dl Magnesium (1.8-2.4) mg/dl Iron Cancelled (35-175) mcg/dl Transferrin Cancelled (200-360) mg/dl Transferrin % Sat Cancelled (20-50) % Ferritin Cancelled (8-388) ng/ml Total Bilirubin (0.2-1) mg/dl AST (15-37) U/L ALT (12-78) U/L Alkaline Phosphatase (45-117) U/L Troponin I (0-0.045) ng/ml C-Reactive Protein (0-0.29) mg/dl NT-Pro-B Natriuret Pep (0-900) pg/ml Total Protein (6.4-8.2) gm/dl Albumin (3.4-5.0) gm/dl Globulin (2.5-4.0) gm/dl Albumin/Globulin Ratio (0.9-2) Procalcitonin 0.12 (0-0.5) ng/ml TSH (0.300-4.500) uIu/ml Urine Color Urine Appearance (Clear) Urine pH (4.5-7.5) Ur Specific [place] (1.000-1.030) Urine Protein (Negative) Urine Glucose (UA) (Negative) Urine Ketones (Negative) Urine Blood (Negative) Urine Nitrite (Negative) Urine Bilirubin (Negative) Urine Urobilinogen (Negative) Ur Leukocyte Esterase (Negative) COVID-19 Eval Order COVID-19 PCR (Negative) Nasopharyn COVID-19 PCR Influenza Type A (PCR) (Neg) Influenza Type B (PCR) (Neg) Blood Type Blood Type Recheck Antibody Screen Crossmatch 04/28/20 04/28/20 04/28/20 Range/Units 13:15 13:15 13:15 WBC (4.8-10.8) K/uL RBC (4.7-6.1) M/uL Hgb (14.0-18.0) g/dL Hct (42-52) % MCV (80-100) fL MCH (25-34) pg MCHC (32-36) g/dL RDW Std Deviation (36.4-46.3) fL RDW Coeff of Sarah (11.5-14.5) % Plt Count (130-400) K/uL MPV (7.4-10.4) fL Immature Gran % (Auto) % Neut % (Auto) % Lymph % (Auto) % [place] % (Auto) % Eos % (Auto) % Baso % (Auto) % Neut # (Auto) (1.4-6.5) K/uL Lymph # (Auto) (1.2-3.4) K/uL [place] # (Auto) (0.11-0.59) K/uL Eos # (Auto) (0-0.5) K/uL Baso # (Auto) (0-0.2) K/uL Immature Gran # (Auto) (0.00-0.02) K/uL Polychromasia Microcytosis ESR (0-14) mm/hr PT 11.3 (9.0-12.0) Seconds INR 1.1 (0.9-1.1) APTT 21.1 (21.0-31.0) Seconds PTT Ratio 0.8 VBG pH (7.36-7.41) VBG pCO2 (38-50) mmHg VBG pO2 mmHg VBG HCO3 mmol/L VBG O2 Saturation % VBG Base Excess mEq/L Barometric Pressure mm/Hg Sodium 135 L (136-145) mmol/L Potassium 4.4 (3.5-5.1) mmol/L Chloride 107 (98-107) mmol/L Carbon Dioxide 21 (21-32) mmol/L Anion Gap 7.0 (3-11) BUN 32 H (7-18) mg/dl Creatinine 2.14 H (0.6-1.4) mg/dl Est Cr Clr Drug Dosing 37.2 ml/min Est GFR ( Amer) 34.3 Est GFR (Non-Af Amer) 29.6 BUN/Creatinine Ratio 15.1 (10-20) Glucose 255 H (70-99) mg/dl POC Glucose (70-99) mg/dl Estimat Average Glucose mg/dl Hemoglobin A1c (4.5-5.6) % Lactate (0.4-2.0) mmol/L Calcium 8.1 L (8.5-10.1) mg/dl Magnesium 2.5 H (1.8-2.4) mg/dl Iron 10 L (35-175) mcg/dl Transferrin 357 (200-360) mg/dl Transferrin % Sat 2 L (20-50) % Ferritin 6.2 L (8-388) ng/ml Total Bilirubin 0.7 (0.2-1) mg/dl AST 28 (15-37) U/L ALT 37 (12-78) U/L Alkaline Phosphatase 118 H (45-117) U/L Troponin I < 0.015 (0-0.045) ng/ml C-Reactive Protein 0.64 H (0-0.29) mg/dl NT-Pro-B Natriuret Pep 1125 H (0-900) pg/ml Total Protein 6.9 (6.4-8.2) gm/dl Albumin 2.9 L (3.4-5.0) gm/dl Globulin 4.0 (2.5-4.0) gm/dl Albumin/Globulin Ratio 0.7 L (0.9-2) Procalcitonin (0-0.5) ng/ml TSH (0.300-4.500) uIu/ml Urine Color Urine Appearance (Clear) Urine pH (4.5-7.5) Ur Specific [place] (1.000-1.030) Urine Protein (Negative) Urine Glucose (UA) (Negative) Urine Ketones (Negative) Urine Blood (Negative) Urine Nitrite (Negative) Urine Bilirubin (Negative) Urine Urobilinogen (Negative) Ur Leukocyte Esterase (Negative) COVID-19 Eval Order COVID-19 PCR (Negative) Nasopharyn COVID-19 PCR Influenza Type A (PCR) (Neg) Influenza Type B (PCR) (Neg) Blood Type Blood Type Recheck Antibody Screen Crossmatch 04/28/20 Range/Units 13:15 WBC 9.97 (4.8-10.8) K/uL RBC 2.76 L (4.7-6.1) M/uL Hgb 6.2 L* (14.0-18.0) g/dL Hct 20.7 L* (42-52) % MCV 75.0 L (80-100) fL MCH 22.5 L (25-34) pg MCHC 30.0 L (32-36) g/dL RDW Std Deviation 40.1 (36.4-46.3) fL RDW Coeff of Sarah 14.6 H (11.5-14.5) % Plt Count 257 (130-400) K/uL MPV 10.6 H (7.4-10.4) fL Immature Gran % (Auto) 0.2 % Neut % (Auto) 84.0 % Lymph % (Auto) 7.7 % [place] % (Auto) 7.0 % Eos % (Auto) 0.7 % Baso % (Auto) 0.4 % Neut # (Auto) 8.37 H (1.4-6.5) K/uL Lymph # (Auto) 0.77 L (1.2-3.4) K/uL [place] # (Auto) 0.70 H (0.11-0.59) K/uL Eos # (Auto) 0.07 (0-0.5) K/uL Baso # (Auto) 0.04 (0-0.2) K/uL Immature Gran # (Auto) 0.02 (0.00-0.02) K/uL Polychromasia 1+ Microcytosis Present ESR (0-14) mm/hr PT (9.0-12.0) Seconds INR (0.9-1.1) APTT (21.0-31.0) Seconds PTT Ratio VBG pH (7.36-7.41) VBG pCO2 (38-50) mmHg VBG pO2 mmHg VBG HCO3 mmol/L VBG O2 Saturation % VBG Base Excess mEq/L Barometric Pressure mm/Hg Sodium (136-145) mmol/L Potassium (3.5-5.1) mmol/L Chloride (98-107) mmol/L Carbon Dioxide (21-32) mmol/L Anion Gap (3-11) BUN (7-18) mg/dl Creatinine (0.6-1.4) mg/dl Est Cr Clr Drug Dosing ml/min Est GFR ( Amer) Est GFR (Non-Af Amer) BUN/Creatinine Ratio (10-20) Glucose (70-99) mg/dl POC Glucose (70-99) mg/dl Estimat Average Glucose mg/dl Hemoglobin A1c (4.5-5.6) % Lactate (0.4-2.0) mmol/L Calcium (8.5-10.1) mg/dl Magnesium (1.8-2.4) mg/dl Iron (35-175) mcg/dl Transferrin (200-360) mg/dl Transferrin % Sat (20-50) % Ferritin (8-388) ng/ml Total Bilirubin (0.2-1) mg/dl AST (15-37) U/L ALT (12-78) U/L Alkaline Phosphatase (45-117) U/L Troponin I (0-0.045) ng/ml C-Reactive Protein (0-0.29) mg/dl NT-Pro-B Natriuret Pep (0-900) pg/ml Total Protein (6.4-8.2) gm/dl Albumin (3.4-5.0) gm/dl Globulin (2.5-4.0) gm/dl Albumin/Globulin Ratio (0.9-2) Procalcitonin (0-0.5) ng/ml TSH (0.300-4.500) uIu/ml Urine Color Urine Appearance (Clear) Urine pH (4.5-7.5) Ur Specific [place] (1.000-1.030) Urine Protein (Negative) Urine Glucose (UA) (Negative) Urine Ketones (Negative) Urine Blood (Negative) Urine Nitrite (Negative) Urine Bilirubin (Negative) Urine Urobilinogen (Negative) Ur Leukocyte Esterase (Negative) COVID-19 Eval Order COVID-19 PCR (Negative) Nasopharyn COVID-19 PCR Influenza Type A (PCR) (Neg) Influenza Type B (PCR) (Neg) Blood Type Blood Type Recheck Antibody Screen Crossmatch Diagnostic Findings CT abd pelvis oral and IV con CLINICAL HISTORY: anemia,rectal bleeding,look for colon mass COMPARISON STUDY: None. TECHNIQUE: The patient was scanned following administration of dilute oral contrast, and in a dynamic helical fashion during intravenous administration of 92 cc of Optiray 320 A dose lowering technique was utilized adhering to the principles of ALARA. CT DOSE: 974.74 mGycm FINDINGS: Lower chest: There are small bilateral pleural effusions with associated basilar airspace opacities, likely atelectatic Liver: There are multiple hypodense hepatic lesions. Many is approach water attenuation and may reflect cysts. Several however exceeds water attenuation and are therefore indeterminate. Ultrasound correlation is suggested. Gallbladder: Cholelithiasis Spleen: Normal in size and attenuation. Pancreas: Unremarkable. Adrenal glands: Unremarkable. Kidneys: There are bilateral hypodense renal lesions, statistically representing cysts. There is no hydronephrosis. Bowel: There are no transition zones indicate bowel obstruction. There is no evidence of acute diverticulitis. The appendix appears normal. No colonic masses are identified. Peritoneum: There is no intraperitoneal free air or abdominal ascites. Vasculature: The abdominal aorta is normal in course and caliber. Adenopathy: None. Pelvic viscera: There is mild prostatomegaly Skeletal structures: There is a 12 mm right-sided L3 lytic vertebral body lesion. IMPRESSION: 1. No evidence of bowel obstruction. No evidence of free air 2. Diverticulosis. No was of acute diverticulitis 3. Normal appendix 4. No colonic lesions identified 5. Small bilateral pleural effusions with basilar atelectasis 6. Multiple hypodense hepatic lesions likely represent cysts 7. Cholelithiasis 8. Mild prostatomegaly 9. 12 mm L3 vertebral body lytic focus. Hemangioma versus other Renal ultrasound: IMPRESSION: 1. No renal calculi or hydronephrosis. 2. Indeterminate isoechoic focus involving the upper pole left kidney measuring up to 1.2 cm. Differential considerations would include a complex cyst versus solid lesion. Correlation with a follow-up CT renal protocol recommended. 3. Mild nonspecific urinary bladder wall thickening may reflect chronic bladder outlet obstruction. Correlate with urinalysis. 4. Hepatic steatosis. 5. Bladder sludge and probable cholelithiasis. PG Care Time/CCT Total # of Minutes Spent Total Time Spent with Patient: Total time spent is greater than 50% in coordination of care (as documented) at patient's floor/unit and/or counseling patient: Coding Level of Care Code 86095 Subseq Hosp Care Lvl 3 Diagnoses Iron deficiency anemia D50.9 Iron deficiency anemia type: unspecified iron deficiency Elevated serum creatinine R79.89 Acute CHF I50.9 Heart failure type: unspecified Heme positive stool R19.5 Pulmonary edema J81.0 Chronicity: acute High cholesterol E78.00 IDDM (insulin dependent diabetes mellitus) Hypertension I10 Hypertension type: essential hypertension Hemorrhoids K64.9 Hemorrhoid type: unspecified Diabetic peripheral neuropathy E11.42 Renal lesion N28.9 Liver lesion K76.9 Lytic lesion of bone on x-ray M89.9 Fatty liver K76.0 Cholelithiasis K80.20 BPH (benign prostatic hyperplasia) N40.1; R39.14 Lower urinary tract symptom detail: incomplete bladder emptying Lower urinary tract symptom presence: symptoms present DVT prophylaxis Z29.9 (1) BPH (benign prostatic hyperplasia) Lower urinary tract symptom detail: incomplete bladder emptying Lower urinary tract symptom presence: symptoms present Qualified Code(s): N40.1 - Benign prostatic hyperplasia with lower urinary tract symptoms; R39.14 - Feeling of incomplete bladder emptying (2) Acute CHF Heart failure type: unspecified Qualified Code(s): I50.9 - Heart failure, unspecified (3) Pulmonary edema Chronicity: acute Qualified Code(s): J81.0 - Acute pulmonary edema (4) Iron deficiency anemia Iron deficiency anemia type: unspecified iron deficiency Qualified Code(s): D50.9 - Iron deficiency anemia, unspecified (5) Hemorrhoids Hemorrhoid type: unspecified Qualified Code(s): K64.9 - Unspecified hemorrhoids (6) Hypertension Hypertension type: essential hypertension Qualified Code(s): I10 - Essential (primary) hypertension
--- NOTE | 2020-04-29 13:11 | XCELERA ---
[id number]
[2020-04-29] MEDS: MAGNESIUM OXIDE 400 MG TAB PO SCH (15:22)
[2020-04-29] MEDS ORDERED: IOVERSOL 100ml IV ONE (15:43)
--- NOTE | 2020-04-29 15:59 | CT Scan Report ---
CT abd pelvis oral and IV con CLINICAL HISTORY: anemia,rectal bleeding,look for colon mass COMPARISON STUDY: None. TECHNIQUE: The patient was scanned following administration of dilute oral contrast, and in a dynamic helical fashion during intravenous administration of 92 cc of Optiray 320 A dose lowering technique was utilized adhering to the principles of ALARA. CT DOSE: 974.74 mGycm FINDINGS: Lower chest: There are small bilateral pleural effusions with associated basilar airspace opacities, likely atelectatic Liver: There are multiple hypodense hepatic lesions. Many is approach water attenuation and may refle ct cysts. Several however exceeds water attenuation and are therefore indeterminate. Ultrasound corre lation is suggested. Gallbladder: Cholelithiasis Spleen: Normal in size and attenuation. Pancreas: Unremarkable. Adrenal glands: Unremarkable. Kidneys: There are bilateral hypodense renal lesions, statistically representing cysts. There is no h ydronephrosis. Bowel: There are no transition zones indicate bowel obstruction. There is no evidence of acute divert iculitis. The appendix appears normal. No colonic masses are identified. Peritoneum: There is no intraperitoneal free air or abdominal ascites. Vasculature: The abdominal aorta is normal in course and caliber. Adenopathy: None. Pelvic viscera: There is mild prostatomegaly Skeletal structures: There is a 12 mm right-sided L3 lytic vertebral body lesion. IMPRESSION: 1. No evidence of bowel obstruction. No evidence of free air 2. Diverticulosis. No was of acute diverticulitis 3. Normal appendix 4. No colonic lesions identified 5. Small bilateral pleural effusions with basilar atelectasis 6. Multiple hypodense hepatic lesions likely represent cysts 7. Cholelithiasis 8. Mild prostatomegaly 9. 12 mm L3 vertebral body lytic focus. Hemangioma versus other ACT 112: Negative or not required by law. Electronically signed by: Won Michelle M.D. 04/29/2020 3:57 PM
[2020-04-29] MEDS ORDERED: POLYETHYLENE (MIRALAX) 17 GM PACK PO ONE (18:45)
[2020-04-29] MEDS: INSULIN GLARGINE SOLOSTAR 100 UNITS/ML 3 ML PEN SQ SCH (20:47)
[2020-04-29] MEDS: ATORVASTATIN 40 MG TAB PO SCH (21:13)
[2020-04-29] MEDS ORDERED: MELATONIN 3 MG TAB PO PRN (23:52)
[2020-04-30] MEDS ORDERED: POLYETHYLENE (MIRALAX) 17 GM PACK PO ONE (06:00)
[2020-04-30 06:35] LABS: Basophils # (auto) 0.03 K/uL (0-0.2); Basophils % (auto) 0.3 %; Eosinophils # (auto) 0.44 K/uL (0-0.5); Eosinophils % (auto) 4.8 %; Hematocrit (blood only) 26.6 % (42-52); Hemoglobin 8.3 g/dL (14.0-18.0); Immature Granulocytes # (auto) 0.02 K/uL (0.00-0.02); Immature Granulocytes % (auto) 0.2 %; Lymphocytes # (auto) 2.13 K/uL (1.2-3.4); Lymphocytes % (auto) 23.2 %; Mean Corpuscular Hgb Conc 31.2 g/dL (32-36); Mean Corpuscular Volume 76.9 fL (80-100); Mean Platelet Volume 10.5 fL (7.4-10.4); Monocytes # (auto) 1.16 K/uL (0.11-0.59); Monocytes % (auto) 12.6 %; Neutrophils # (auto) 5.39 K/uL (1.4-6.5); Neutrophils % (auto) 58.9 %; Platelet Count 256 K/uL (130-400); RDW Coefficient of Variation 16.3 % (11.5-14.5); RDW Standard Deviation 44.9 fL (36.4-46.3); Red Blood Count 3.46 M/uL (4.7-6.1); White Blood Count 9.17 K/uL (4.8-10.8)
[2020-04-30 07:11] LABS: BUN Creatinine Ratio 15.2 (10-20); Calcium 8.1 mg/dl (8.5-10.1); Creatinine Clr Calc Pharmacy 43.5 ml/min; Est GFR (African American) 42.6; Est GFR (Non-African American) 36.8; Magnesium 2.4 mg/dl (1.8-2.4); Potassium 4.2 mmol/L (3.5-5.1)
[2020-04-30] MEDS: HYDROCORTISONE ACETATE 25 MG SUPP PR SCH ×2 (09:02→14:26)
[2020-04-30] MEDS: INSULIN ASPART 100 UNITS/ML 3 ML PEN SC SCH ×4 (09:02→20:28)
[2020-04-30] MEDS: TAMSULOSIN HCL 0.4 MG CAP PO SCH (09:04)
[2020-04-30] MEDS: MAGNESIUM OXIDE 400 MG TAB PO SCH (09:04)
[2020-04-30] MEDS: METOPROLOL TARTRATE 25 MG TAB PO SCH ×2 (09:04→20:28)
[2020-04-30] MEDS: GABAPENTIN 100 MG CAP PO SCH ×2 (09:04→20:28)
[2020-04-30] MEDS: PANTOprazole 40 MG TAB PO SCH (09:05)
[2020-04-30] MEDS: CETIRIZINE HCL 10 MG TABLET PO SCH (09:06)
[2020-04-30] MEDS: CHOLECALCIFEROL 1,000 UNITS 25 MCG TAB PO SCH (09:06)
--- NOTE | 2020-04-30 13:39 | Anesthesiology Consultation ---
Date of Service April 30, 2020 Assessment & Plan (1) Encounter for pre-operative examination: Chart Review Chart Review: Acceptable Risk for Surgery and Patient NOT seen in Pre Admission Testing Consults Requested none History Surgery Operation Date: 04/30/20 16:30 Proposed Procedures p Colonoscopy and EGD Dr. Drew Hernandez Case, DO Height/Weight Height: 5 ft 11 in Weight: 96.1 kg Allergies Allergy/AdvReac Type Severity Reaction Status Date / Time No Known Allergies Allergy Unverified 04/28/20 14:54 Medications Home Medications Medication Instructions Recorded Confirmed Last Taken amlodipine 10 mg PO DAILY 04/28/20 04/28/20 04/27/20 aspirin 81 mg PO DAILY 04/28/20 04/28/20 04/27/20 atenolol 25 mg PO DAILY 04/28/20 04/28/20 04/27/20 atorvastatin 80 mg PO HS 04/28/20 04/28/20 04/27/20 cetirizine 10 mg PO DAILY 04/28/20 04/28/20 04/27/20 cholecalciferol (vitamin D3) 25 mcg PO DAILY 04/28/20 04/28/20 04/27/20 etodolac 400 mg PO BID 04/28/20 04/28/20 04/27/20 famotidine 20 mg PO DAILY 04/28/20 04/28/20 04/27/20 gabapentin 100 mg PO BID 04/28/20 04/28/20 04/27/20 hydrochlorothiazide 50 mg PO DAILY 04/28/20 04/28/20 04/27/20 insulin aspart U-100 [Novolog 30 unit SUBCUT TID 04/28/20 04/28/20 04/28/20 Flexpen U-100 Insulin] insulin glargine [Lantus Solostar 60 unit SUBCUT HS 04/28/20 04/28/20 04/27/20 U-100 Insulin] lisinopril 40 mg PO DAILY 04/28/20 04/28/20 04/27/20 Active Medications Generic Name Dose Route Start Last Admin Trade Name Freq PRN Reason Stop Dose Admin Aspirin 81 mg 04/29/20 09:00 04/29/20 09:33 Aspirin 81 Mg Ectab PO 05/29/20 08:59 Not Given DAILY CORBY Atorvastatin Calcium 80 mg 04/28/20 21:00 10/06/20 21:13 Atorvastatin 40 Mg Tab PO 05/28/20 20:59 80 mg HS CORBY Administration Cetirizine HCl 10 mg 04/29/20 09:00 04/30/20 09:06 Cetirizine Hcl 10 Mg Tablet PO 05/29/20 08:59 10 mg DAILY CORBY Administration Gabapentin 100 mg 04/28/20 21:00 04/30/20 09:04 Gabapentin 100 Mg Cap PO 05/28/20 20:59 100 mg BID CORBY Administration Hydrocortisone 25 mg 04/28/20 21:00 04/30/20 09:02 Hydrocortisone Acetate 25 Mg Supp [place] 05/28/20 20:59 Not Given TID CORBY Insulin Aspart 0 units 04/28/20 17:15 04/30/20 12:09 Insulin Aspart 100 Units/Ml 3 Ml Pen SC 05/28/20 17:14 Not Given ACHS CORBY Insulin Glargine 60 units 04/28/20 21:00 04/29/20 20:47 Insulin Glargine Solostar 100 Units/Ml 3 Ml Pen SQ 05/28/20 20:59 60 units HS OCRBY Administration Magnesium Oxide 400 mg 04/29/20 14:15 04/30/20 09:04 Magnesium Oxide 400 Mg Tab PO 05/29/20 14:14 400 mg QAM CORBY Administration Metoprolol Tartrate 12.5 mg 04/28/20 21:00 04/30/20 09:04 Metoprolol Tartrate 25 Mg Tab PO 05/28/20 20:59 12.5 mg BID CORBY Administration Pantoprazole Sodium 40 mg 04/28/20 21:00 04/30/20 09:05 Pantoprazole 40 Mg Tab PO 05/28/20 20:59 40 mg BID CORBY Administration Tamsulosin HCl 0.4 mg 04/29/20 09:00 04/30/20 09:04 Tamsulosin Hcl 0.4 Mg Cap PO 05/29/20 08:59 0.4 mg QAM CORBY Administration Vitamin D 1,000 units 04/29/20 09:00 04/30/20 09:06 Cholecalciferol 1,000 Units 25 Mcg Tab PO 05/29/20 08:59 1,000 units DAILY CORBY Administration Past Medical History Medical History (Updated 04/30/20 @ 13:44 by James Yee MD) Acute CHF Cholelithiasis Diabetic peripheral neuropathy DJD (degenerative joint disease), lumbar Elevated serum creatinine Fatty liver Hemorrhoids High cholesterol Hypertension IDDM (insulin dependent diabetes mellitus) Iron deficiency anemia Liver lesion Osteoarthritis Pulmonary edema Renal lesion Iron deficiency anemia: Severe Fe deficiency -- ferritin <5, presenting Hb 6.2. Chronic rectal bleeding from hemorrhoids may be the culprit but I cannot rule out GI bleeding from other source. Hemoglobin now up to 7.8 after 2 units PRBCs on 04/28 Most likely lower GI bleeding-no need for PPI most likely but will continue as recommended by GI CT abdomen/pelvis without obvious mass in the bowels, but with multiple hypodense liver and renal lesions which could be cysts versus other more concerning lesions Appreciate GI consultation-plan for EGD and colonoscopy tomorrow Follow CBC in the morning -Hold home aspirin Acute CHF: Patient clinically and radiographically has evidence of acute CHF. Echocardiogram with preserved EF, most likely acute on chronic diastolic CHF, severe anemia playing a role s/p lasix 40mg x 1 given in ER by ER attending and was given an additional dose of IV Lasix after his PRBC transfusion. Shortness of breath is now completely resolved after transfusion and IV Lasix Not hypoxic Changed home atenolol to metoprolol which would be better given his renal failure. Past Family History Family History Mother Diabetes Hypertension Heart disease Father , unknown medical history No problems noted. Brother Hypertension Sister Hypertension Sister Hypertension Past Surgical History Surgical History H/O foot surgery left - bone spur Hx of tonsillectomy Past Anesthesia History No Hx of Anesthesia Complications and No Family Hx of Anesthesia Complications History of PONV No Hx of PONV and No Hx of Motion Sickness Social History Smoking Status: Former smoker tobacco type: cigarettes Do You Dip or Chew Tobacco: No Smoking End Date: 1983 Hx Alcohol Use: Yes Alcohol type: beer and wine alcohol intake frequency: holidays/special occasions only Hx Substance Use: No substance use type: does not use Physical Exam Vital Signs Last Vital Signs Temp 36.8 C 04/30/20 12:07 Pulse 75 04/30/20 12:07 Resp 18 04/30/20 12:07 BP 124/59 L 04/30/20 12:07 Pulse Ox 95 04/30/20 12:07 Testing Laboratory Results 04/30/20 06:14 04/30/20 06:14 PT 11.3 Seconds (9.0-12.0) 04/28/20 13:15 INR 1.1 (0.9-1.1) 04/28/20 13:15 APTT 21.1 Seconds (21.0-31.0) 04/28/20 13:15 Hemoglobin A1c 9.6 % (4.5-5.6) H 04/29/20 05:21 Urine Color Yellow 04/28/20 16:15 Urine Appearance Clear (Clear) 04/28/20 16:15 Urine pH 5.0 (4.5-7.5) 04/28/20 16:15 Ur Specific [place] 1.011 (1.000-1.030) 04/28/20 16:15 Urine Protein Negative (Negative) 04/28/20 16:15 Urine Glucose (UA) Negative (Negative) 04/28/20 16:15 Urine Ketones Negative (Negative) 04/28/20 16:15 Urine Nitrite Negative (Negative) 04/28/20 16:15 Ur Leukocyte Esterase Negative (Negative) 04/28/20 16:15 Blood Type O Positive 04/28/20 14:12 Antibody Screen NEGATIVE 04/28/20 14:12 04/28/20 13:15 Aerobic Blood Culture - Preliminary Blood No growth in Aerobic bottle after 24 hours. Anaerobic Blood Culture - Preliminary No growth in Anaerobic bottle after 24 hours. 04/28/20 13:10 Aerobic Blood Culture - Preliminary Blood No growth in Aerobic bottle after 24 hours. Anaerobic Blood Culture - Preliminary No growth in Anaerobic bottle after 24 hours. Electrocardiogram Date: 04/28/20 Test Reason : Blood Pressure : / mmHG Vent. Rate : 063 BPM Atrial Rate : 063 BPM P-R Int : 164 ms QRS Dur : 084 ms QT Int : 432 ms P-R-T Axes : 032 028 033 degrees QTc Int : 442 ms Normal sinus rhythm Normal ECG No previous ECGs available Confirmed by Srinivasan Simon ([id number]) on 04/28/2020 5:19:44 PM Chest X-Ray Date: 04/28/20 XR chest 1V portable HISTORY: 75 years-old Male Dyspnea acute shortness of breath COMPARISON: None TECHNIQUE: Portable AP view of the chest FINDINGS: Cardiac silhouette is enlarged. Pulmonary vascular congestion with interstitial coarsening. No pneumothorax. Small pleural effusions with bibasilar consolidation. Degenerative changes of the shoulders and spine. IMPRESSION: 1. Cardiomegaly with pulmonary vascular congestion and interstitial coarsening suggestive of pulmonary edema. 2. Small pleural effusions with bibasilar opacities suggestive of atelectasis versus pneumonitis. Echocardiogram Date: 04/29/20 LV systolic function is normal. Grade 2 DD. LA mildly dilated. Mod MR. EF 55-60%
--- NOTE | 2020-04-30 14:38 | Gastroenterology Progress Note ---
Date of Service April 30, 2020 Assessment & Plan (1) Lytic lesion of bone on x-ray: (2) Microcytic anemia: Proceed with EGD and colonoscopy Admission and Anticipated Discharge Date Admission Date: April 28, 2020 Subjective Patient with no evidence of overt GI bleeding last night. Tolerated bowel prep. No complaints at present Physical Exam Constitutional: WD/WN, vitals as above Respiratory: normal respiratory effort, lungs clear to auscultation Cardiovascular: RRR, no murmur, no edema Gastrointestinal (Abdomen): normal bowel sounds, soft, nontender, no hepatosplenomegaly Results & Data Results & Data ([facility]) Vital Signs (Past 12 Hours) Vital Signs Temp Pulse Pulse Resp BP Pulse Ox 04/30/20 13:39 36.9 C 75 16 146/70 H 93 04/30/20 12:07 36.8 C 75 18 124/59 L 95 04/30/20 08:07 36.9 C 74 18 134/62 97 04/30/20 07:24 79 04/30/20 04:25 37.2 C 75 16 134/62 90 PG Care Time/CCT Total # of Minutes Spent Total Time Spent with Patient: Total time spent is greater than 50% in coordination of care (as documented) at patient's floor/unit and/or counseling patient: Coding Level of Care Code None Diagnoses Lytic lesion of bone on x-ray M89.9 Microcytic anemia D50.9
--- NOTE | 2020-04-30 15:45 | GI REPORT ---
Patient Name: Srinivasan Fields Procedure Date: 04/30/2020 2:37 PM Date of : 1945 Admit Type: Inpatient Age: 75 Gender: Male Attending MD: Christiano Russell DO Procedure: Colonoscopy Providers: Christiano Russell DO Referring MD: Alexandria Lemus Md Indications: Unexplained iron deficiency anemia, Abnormal CT of the GI tract Medicines: Monitored Anesthesia Care Complications: No immediate complications. Estimated Blood Loss: Estimated blood loss: none. Procedure: Pre-Anesthesia Assessment: - Prior to the procedure, a History and Physical was performed, and patient medications and allergies were reviewed. The patient's tolerance of previous anesthesia was also reviewed. The risks and benefits of the procedure and the sedation options and risks were discussed with the patient. All questions were answered, and informed consent was obtained. Prior Anticoagulants: The patient has taken aspirin, last dose was 3 days prior to procedure. ASA Grade Assessment: III - A patient with severe systemic disease. After reviewing the risks and benefits, the patient was deemed in satisfactory condition to undergo the procedure. After I obtained informed consent, the scope was passed under direct vision. Throughout the procedure, the patient's blood pressure, pulse, and oxygen saturations were monitored continuously. The scope was introduced through the anus with the intention of advancing to the ileum. The scope was advanced to the ascending colon before the procedure was aborted. Medications were given. The colonoscopy was performed without difficulty. The patient tolerated the procedure poorly due to the patient's inability to tolerate conscious sedation. The quality of the bowel preparation was poor. No anatomical landmarks were photographed. Findings: The perianal exam findings include perianal fistula. Multiple small-mouthed diverticula were found in the sigmoid colon. Non-bleeding internal hemorrhoids were found during retroflexion. The hemorrhoids were small. Impression: - Preparation of the colon was poor. 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 - Diverticulosis in the sigmoid colon. - Non-bleeding internal hemorrhoids. - No specimens collected. Recommendation: - [facility]. - Advance diet as tolerated. - Continue present medications. Christiano Russell DO 04/30/2020 3:45:04 PM This report has been signed electronically. Note Initiated On: 04/30/2020 2:37 PM Number of Addenda: 0 I attest to the content of the Intraoperative Record and orders documented therein, exceptions below {[id number]}
--- NOTE | 2020-04-30 15:48 | GI REPORT ---
Patient Name: Srinivasan Fielsd Procedure Date: 04/30/2020 2:37 PM Date of : 1945 Admit Type: Inpatient Age: 75 Gender: Male Attending MD: Christiano Russell DO Procedure: Upper GI endoscopy Providers: Christiano Russell DO Referring MD: Alexandria Lemus Md Indications: Unexplained iron deficiency anemia, Abnormal CT of the GI tract Medicines: Monitored Anesthesia Care Complications: No immediate complications. Estimated Blood Loss: Estimated blood loss: none. Procedure: Pre-Anesthesia Assessment: - Prior to the procedure, a History and Physical was performed, and patient medications and allergies were reviewed. The patient's tolerance of previous anesthesia was also reviewed. The risks and benefits of the procedure and the sedation options and risks were discussed with the patient. All questions were answered, and informed consent was obtained. Prior Anticoagulants: The patient has taken aspirin, last dose was 3 days prior to procedure. ASA Grade Assessment: III - A patient with severe systemic disease. After reviewing the risks and benefits, the patient was deemed in satisfactory condition to undergo the procedure. After obtaining informed consent, the endoscope was passed under direct vision. Throughout the procedure, the patient's blood pressure, pulse, and oxygen saturations were monitored continuously. The scope was introduced through the mouth, and advanced to the third part of duodenum. The upper GI endoscopy was accomplished without difficulty. The patient tolerated the procedure well. Findings: The esophagus was normal. A medium-sized hiatal hernia was present. A single 8 mm pedunculated and sessile polyp with no bleeding and no stigmata of recent bleeding was found in the gastric antrum. The polyp was removed with a hot snare. Resection and retrieval were complete. To prevent bleeding after the polypectomy, two hemostatic clips were successfully placed (MR conditional). There was no bleeding at the end of the procedure. The examined duodenum was normal. Impression: - Normal esophagus. - Medium-sized hiatal hernia. - A single gastric polyp. Resected and retrieved. Clips (MR conditional) were placed. - Normal examined duodenum. Recommendation: - [facility]. - Advance diet as tolerated. - Continue present medications. - Await pathology results. Christiano Russell DO 04/30/2020 3:48:03 PM This report has been signed electronically. Note Initiated On: 04/30/2020 2:37 PM Number of Addenda: 0 I attest to the content of the Intraoperative Record and orders documented therein, exceptions below {[id number]}
--- NOTE | 2020-04-30 15:59 | Anesthesiology Progress Note ---
Date of Service April 30, 2020 Anesthesia Post Procedure Vital Signs Vital Signs: Temp Pulse Pulse Resp BP Pulse Ox 04/30/20 13:39 36.9 C 75 16 146/70 H 93 04/30/20 12:07 36.8 C 75 18 124/59 L 95 04/30/20 08:07 36.9 C 74 18 134/62 97 04/30/20 07:24 79 04/30/20 04:25 37.2 C 75 16 134/62 90 04/30/20 00:00 68 04/29/20 23:24 37.2 C 65 20 131/66 92 04/29/20 19:02 37.2 C 74 17 142/71 H 92 04/29/20 16:00 68 Transfer of Care Handoff Completed per policy Notes Mental Status: alert / awake / arousable and participated in evaluation Patient Amnestic to Procedure: Yes Nausea / Vomiting: adequately controlled Pain: adequately controlled Airway Patency, RR, SpO2: stable & adequate BP & HR: stable & adequate Hydration State: stable & adequate Anesthetic Complications: no major complications apparent and Pt Satisfied with anesthetic care
[2020-04-30] MEDS ORDERED: LIDOCAINE HCL 2% 2 ML VIAL/AMP(20MG/ML) INFIL ONE (16:01)
[2020-04-30] MEDS ORDERED: PROPOFOL IV EMULSION 10 MG/ML 20 ML VIAL IV ONE (16:02)
--- NOTE | 2020-04-30 19:41 | Hospitalist Progress Note ---
Date of Service April 30, 2020 Assessment & Plan (1) Iron deficiency anemia: Severe Fe deficiency -- ferritin <5, presenting Hb 6.2. Chronic rectal bleeding from hemorrhoids may be the culprit but could not rule out GI bleeding from other source versus malabsorption such as celiac disease Hemoglobin now up to 8.3 after 2 units PRBCs on 04/28 CT abdomen/pelvis without obvious mass in the bowels, but with multiple hypodense liver and renal lesions which could be cysts versus other more concerning lesions Appreciate GI consultation-now status post EGD and colonoscopy with findings of gastric polyp which was biopsied-pathology pending. Colonoscopy unable to intubate the cecum due to intolerance to conscious sedation, however only with small nonbleeding internal hemorrhoids and diverticulosis, no masses or source of bleeding. Needs repeat colonoscopy as an outpatient to see if can intubate the cecum and if that is still negative for source of bleeding, would qualify for a video capsule endoscopy. Follow CBC in the morning -Continue to hold home aspirin -Start ferrous sulfate 325 mg p.o. twice daily (2) Elevated serum creatinine: Cr at presentation 2.1 and now decreased to 1.7 after PRBC transfusion unknown baseline; patient has never been told he had chronic kidney disease. 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 Will consult general surgery for opinion on this (5) Hemorrhoids: Small internal hemorrhoids nonbleeding on colonoscopy -Can DC Anusol suppositories (6) Gastric polyp: Biopsy during EGD Will need to follow-up pathology results (7) Diverticulosis: Noted during colonoscopy, no active bleeding (8) Lytic lesion of bone on x-ray: Noted on CT scan to have 12 mm L3 vertebral body lytic bone lesion on a noncontrast scan, radiologist noted could be hemangioma versus other No obvious malignancy seen on colonoscopy and EGD Consider bone scan as an outpatient -Check CT of the chest for malignancy in the lung (9) Cholelithiasis: Noted incidentally, asymptomatic (10) Fatty liver: Noted on CT scan Needs weight loss and better diabetes control (11) Diabetic peripheral neuropathy: Cont gabapentin. (12) High cholesterol: Cont statin (lipitor 80mg daily). (13) Pulmonary edema: in the setting of acute CHF. see above. diuresed and improved. (14) Acute CHF: Patient clinically and radiographically had evidence of acute CHF. Echocardiogram with preserved EF, most likely acute on chronic diastolic CHF, severe anemia playing a role s/p lasix 40mg x 1 given in ER by ER attending and was given an additional dose of IV Lasix after his PRBC transfusion. Shortness of breath is now completely resolved after transfusion and IV Lasix Not hypoxic Changed home atenolol to metoprolol which would be better given his renal failure. Fluid restrict; salt restrict. Daily standing scale weights. He is now euvolemic, no further diuretics needed (15) BPH (benign prostatic hyperplasia): Severe symptoms by history. Started flomax 0.4mg daily here and no longer having any issues. This may account for his elevated creatinine No obstruction on renal/bladder ultrasound (16) Renal lesion: Noted on renal ultrasound 1.2 cm indeterminate lesion on left kidney CT abdomen/pelvis also with multiple bilateral hypodense lesions could be cysts of the kidneys Follow as an outpatient (17) Liver lesion: As above, multiple hypodense lesions possibly cysts on liver Follow as an outpatient Consider liver ultrasound (18) Hypertension: Blood pressure is now mildly elevated with holding home blood pressure medicines -Continue metoprolol and increase to 25 mg p.o. twice daily Continue to hold ACEi and HCTZ for MALINDA and will not likely restart Continue to hold amlodipine for now but can likely restart tomorrow (19) IDDM (insulin dependent diabetes mellitus): Long-standing. Uncontrolled Appreciate CDE consultation Cont lantus 60 units daily. Cont novolog -- correction factor 12, carb ratio 1:4. Hemoglobin A1c here is elevated at 9.6% which he reports is an improvement from his previous. (20) DVT prophylaxis: hold on chemical means for now due to rectal bleeding SCD, ambulate Disposition-continued stay on PCU, but possible discharge to home tomorrow Admission and Anticipated Discharge Date Admission Date: April 28, 2020 Subjective Patient was seen on 2 occasions today. The first time was prior to his colonoscopy and he was reporting feeling well. Denies shortness of breath or chest pains. No abdominal pains. Had a small amount of bright red blood with his bowel prep but otherwise said he was feeling cleaned out. I saw him after his colonoscopy and we discussed the results. I discussed his EGD and colonoscopy results with the outside collector. The patient had to be given a large amount of sedation but was fairly intolerant to conscious sedation making completion of the colonoscopy difficult as per GI. They were unable to intubate the cecum. There was no evidence of obvious bleeding. Review of Systems Review of Systems: All systems reviewed & are unremarkable except as noted in HPI & below Physical Exam Constitutional: WD/WN, vitals as above Eyes: + anicteric sclerae Neck: trachea midline, no thyromegaly Respiratory: normal respiratory effort, lungs clear to auscultation Cardiovascular: RRR, no murmur, no edema Chest (Breasts): Chest: normal inspection of chest Gastrointestinal (Abdomen): normal bowel sounds, soft, nontender, no hepatosplenomegaly Musculoskeletal: Extremities: extremities normal to inspection; no cyanosis and no clubbing Skin: no rashes, warm and dry Neurologic: moves all extremities and awake; no focal motor deficits Psychiatric: A+Ox3, euthymic affect Lymphatic: no lymphedema Results & Data Results & Data ([facility]) Vital Signs (Past 12 Hours) Vital Signs Temp Pulse Pulse Resp BP Pulse Ox 04/30/20 17:33 78 04/30/20 16:53 36.6 C 74 20 148/67 H 94 04/30/20 16:38 72 16 126/70 93 04/30/20 16:24 71 16 146/68 H 92 04/30/20 16:09 74 16 136/71 93 04/30/20 15:54 76 16 113/61 93 04/30/20 13:39 36.9 C 75 16 146/70 H 93 04/30/20 12:07 36.8 C 75 18 124/59 L 95 04/30/20 08:07 36.9 C 74 18 134/62 97 Laboratory Results 04/30/20 04/30/20 04/30/20 Range/Units 16:55 06:14 06:14 WBC 9.17 (4.8-10.8) K/uL RBC 3.46 L (4.7-6.1) M/uL Hgb 8.3 L (14.0-18.0) g/dL Hct 26.6 L (42-52) % MCV 76.9 L (80-100) fL MCH 24.0 L (25-34) pg MCHC 31.2 L (32-36) g/dL RDW Std Deviation 44.9 (36.4-46.3) fL RDW Coeff of Sarah 16.3 H (11.5-14.5) % Plt Count 256 (130-400) K/uL MPV 10.5 H (7.4-10.4) fL Immature Gran % (Auto) 0.2 % Neut % (Auto) 58.9 % Lymph % (Auto) 23.2 % [place] % (Auto) 12.6 % Eos % (Auto) 4.8 % Baso % (Auto) 0.3 % Neut # (Auto) 5.39 (1.4-6.5) K/uL Lymph # (Auto) 2.13 (1.2-3.4) K/uL [place] # (Auto) 1.16 H (0.11-0.59) K/uL Eos # (Auto) 0.44 (0-0.5) K/uL Baso # (Auto) 0.03 (0-0.2) K/uL Immature Gran # (Auto) 0.02 (0.00-0.02) K/uL Sodium 138 (136-145) mmol/L Potassium 4.2 (3.5-5.1) mmol/L Chloride 107 (98-107) mmol/L Carbon Dioxide 25 (21-32) mmol/L Anion Gap 6.0 (3-11) BUN 27 H (7-18) mg/dl Creatinine 1.79 H (0.6-1.4) mg/dl Est Cr Clr Drug Dosing 43.5 ml/min Est GFR ( Amer) 42.6 Est GFR (Non-Af Amer) 36.8 BUN/Creatinine Ratio 15.2 (10-20) Glucose 90 (70-99) mg/dl POC Glucose 156 H (70-99) mg/dl Calcium 8.1 L (8.5-10.1) mg/dl Magnesium 2.4 (1.8-2.4) mg/dl 04/29/20 Range/Units 20:29 WBC (4.8-10.8) K/uL RBC (4.7-6.1) M/uL Hgb (14.0-18.0) g/dL Hct (42-52) % MCV (80-100) fL MCH (25-34) pg MCHC (32-36) g/dL RDW Std Deviation (36.4-46.3) fL RDW Coeff of Sarah (11.5-14.5) % Plt Count (130-400) K/uL MPV (7.4-10.4) fL Immature Gran % (Auto) % Neut % (Auto) % Lymph % (Auto) % [place] % (Auto) % Eos % (Auto) % Baso % (Auto) % Neut # (Auto) (1.4-6.5) K/uL Lymph # (Auto) (1.2-3.4) K/uL [place] # (Auto) (0.11-0.59) K/uL Eos # (Auto) (0-0.5) K/uL Baso # (Auto) (0-0.2) K/uL Immature Gran # (Auto) (0.00-0.02) K/uL Sodium (136-145) mmol/L Potassium (3.5-5.1) mmol/L Chloride (98-107) mmol/L Carbon Dioxide (21-32) mmol/L Anion Gap (3-11) BUN (7-18) mg/dl Creatinine (0.6-1.4) mg/dl Est Cr Clr Drug Dosing ml/min Est GFR ( Amer) Est GFR (Non-Af Amer) BUN/Creatinine Ratio (10-20) Glucose (70-99) mg/dl POC Glucose 259 H (70-99) mg/dl Calcium (8.5-10.1) mg/dl Magnesium (1.8-2.4) mg/dl PG Care Time/CCT Total # of Minutes Spent Total Time Spent with Patient: Total time spent is greater than 50% in coordination of care (as documented) at patient's floor/unit and/or counseling patient: Coding Level of Care Code 67243 Subseq Hosp Care Lvl 3 Diagnoses Iron deficiency anemia D50.9 Iron deficiency anemia type: unspecified iron deficiency Elevated serum creatinine R79.89 Heme positive stool R19.5 Perianal fistula K60.3 Hemorrhoids K64.9 Hemorrhoid type: unspecified Gastric polyp K31.7 Diverticulosis K57.90 Lytic lesion of bone on x-ray M89.9 Cholelithiasis K80.20 Fatty liver K76.0 Diabetic peripheral neuropathy E11.42 High cholesterol E78.00 Pulmonary edema J81.0 Chronicity: acute Acute CHF I50.9 Heart failure type: unspecified BPH (benign prostatic hyperplasia) N40.1; R39.14 Lower urinary tract symptom presence: symptoms present Lower urinary tract symptom detail: incomplete bladder emptying Renal lesion N28.9 Liver lesion K76.9 Hypertension I10 Hypertension type: essential hypertension IDDM (insulin dependent diabetes mellitus) DVT prophylaxis Z29.9 (1) Iron deficiency anemia Iron deficiency anemia type: unspecified iron deficiency Qualified Code(s): D50.9 - Iron deficiency anemia, unspecified (2) Acute CHF Heart failure type: unspecified Qualified Code(s): I50.9 - Heart failure, unspecified (3) Pulmonary edema Chronicity: acute Qualified Code(s): J81.0 - Acute pulmonary edema (4) Hypertension Hypertension type: essential hypertension Qualified Code(s): I10 - Essential (primary) hypertension (5) Hemorrhoids Hemorrhoid type: unspecified Qualified Code(s): K64.9 - Unspecified hemorrhoids (6) BPH (benign prostatic hyperplasia) Lower urinary tract symptom presence: symptoms present Lower urinary tract symptom detail: incomplete bladder emptying Qualified Code(s): N40.1 - Benign prostatic hyperplasia with lower urinary tract symptoms; R39.14 - Feeling of incomplete bladder emptying
[2020-04-30] MEDS: ATORVASTATIN 40 MG TAB PO SCH (20:27)
[2020-04-30] MEDS: INSULIN GLARGINE SOLOSTAR 100 UNITS/ML 3 ML PEN SQ SCH (20:28)
[2020-05-01 07:17] LABS: Basophils # (auto) 0.04 K/uL (0-0.2); Basophils % (auto) 0.5 %; Eosinophils # (auto) 0.32 K/uL (0-0.5); Eosinophils % (auto) 3.9 %; Immature Granulocytes # (auto) 0.01 K/uL (0.00-0.02); Immature Granulocytes % (auto) 0.1 %; Lymphocytes % (auto) 20.8 %; Mean Corpuscular Hemoglobin 23.8 pg (25-34); Mean Corpuscular Hgb Conc 30.8 g/dL (32-36); Mean Corpuscular Volume 77.4 fL (80-100); Mean Platelet Volume 10.3 fL (7.4-10.4); Monocytes # (auto) 1.03 K/uL (0.11-0.59); Monocytes % (auto) 12.6 %; Neutrophils # (auto) 5.07 K/uL (1.4-6.5); Neutrophils % (auto) 62.1 %; Platelet Count 261 K/uL (130-400); RDW Coefficient of Variation 16.4 % (11.5-14.5); RDW Standard Deviation 46.2 fL (36.4-46.3); Red Blood Count 3.36 M/uL (4.7-6.1); White Blood Count 8.17 K/uL (4.8-10.8)
[2020-05-01 07:44] LABS: BUN Creatinine Ratio 12.4 (10-20); Calcium 8.4 mg/dl (8.5-10.1); Creatinine Clr Calc Pharmacy 46.6 ml/min; Est GFR (African American) 46.7; Est GFR (Non-African American) 40.3; Magnesium 2.6 mg/dl (1.8-2.4); Potassium 4.2 mmol/L (3.5-5.1)
[2020-05-01] MEDS: INSULIN ASPART 100 UNITS/ML 3 ML PEN SC SCH ×3 (07:58→16:43)
[2020-05-01] MEDS: CHOLECALCIFEROL 1,000 UNITS 25 MCG TAB PO SCH (07:59)
[2020-05-01] MEDS: FERROUS SULFATE 325 MG TAB PO SCH ×2 (07:59→16:46)
[2020-05-01] MEDS: TAMSULOSIN HCL 0.4 MG CAP PO SCH (07:59)
[2020-05-01] MEDS: MAGNESIUM OXIDE 400 MG TAB PO SCH (07:59)
[2020-05-01] MEDS: METOPROLOL TARTRATE 25 MG TAB PO SCH (08:00)
[2020-05-01] MEDS: GABAPENTIN 100 MG CAP PO SCH (08:00)
[2020-05-01] MEDS: CETIRIZINE HCL 10 MG TABLET PO SCH (08:00)
--- NOTE | 2020-05-01 08:15 | CT Scan Report ---
CT chest wo con CLINICAL HISTORY: Pulmonary edema. Lytic bone disease. Evaluate for lung mass. COMPARISON STUDY: No previous studies for comparison. CT DOSE: 560.20 mGy.cm TECHNIQUE: CT of the thorax was performed from the thoracic inlet to the lung bases. Images are revi ewed in the axial, sagittal, and coronal planes. IV contrast was not administered for this examinatio n. A dose lowering technique was utilized adhering to the principles of ALARA. FINDINGS: Thyroid: Imaged portions of the thyroid gland are normal in appearance. Thoracic aorta: There is mild dilatation of the ascending thoracic aorta which measures 38 mm. Heart: The heart is normal in size and configuration, without pericardial effusion. Lungs and pleural spaces: There are small bilateral pleural effusions. There are dependent airspace o pacities likely atelectatic. No suspicious pulmonary masses are visualized. Mediastinum: There is a right paratracheal lymph node the upper limits of normal in size. Danielle: There is no evidence of pathologic hilar adenopathy given the limitations of a noncontrast stud y Axilla: There is known to pathologic axillary lymphadenopathy Upper abdomen: There are multiple hypodense hepatic lesions possibly representing cysts. Ultrasound could be obtained in follow-up for further evaluation. Skeletal structures: There is a T8 vertebral body hemangioma. There is a 29 mm subcutaneous mass with in the left upper back, likely representing a sebaceous cyst IMPRESSION: 1. Bilateral pleural effusions with associated compressive atelectasis. Suspected mild congestive janice lure 2. T8 vertebral body hemangioma 3. 29 mm subcutaneous mass within the left upper back likely representing a sebaceous cyst 4. Multiple hypodense hepatic lesions likely representing cysts. Ultrasound could be obtained in foll ow-up for confirmation ACT 112: Negative or not required by law. Electronically signed by: Won Mihcelle M.D. 05/01/2020 8:14 AM
--- NOTE | 2020-05-01 09:14 | Surgery Consultation ---
Date of Consultation May 01, 2020 Assessment & Plan (1) Perianal fistula: Not source of bleeding. Can follow-up in clinic prn if he has more pain or drainage after his acute issues are addressed. Supervising Physician Co-Signing Physician Notes I personally saw and evaluated the patient with Reyes Gore PA-C and agree with the assessment and plan. -75 yo male with GI bleed, unknown source -Perianal fistula noted on exam and colonoscopy -This is unlikely the cause of any significant bleeding -Offered him follow up as an outpatient, but he declined -Please call with any questions or concerns History of Present Illness Attending Physician: Alexandria Lemus MD History of Present Illness 75 y/o male admitted several days ago for CHF, anemia. Had EGD, colonoscopy and noted to have perianal fistula. This drains a little every few months but has not been a concern. Current plan is for outpatient capsule endoscopy. He is hoping for discharge home. Allergies Allergy/AdvReac Type Severity Reaction Status Date / Time No Known Allergies Allergy Unverified 04/28/20 14:54 Home Medications Home Medications Medication Instructions Recorded Confirmed Type amlodipine 10 mg PO DAILY 04/28/20 04/28/20 History aspirin 81 mg PO DAILY 04/28/20 04/28/20 History atenolol 25 mg PO DAILY 04/28/20 04/28/20 History atorvastatin 80 mg PO HS 04/28/20 04/28/20 History cetirizine 10 mg PO DAILY 04/28/20 04/28/20 History cholecalciferol (vitamin D3) 25 mcg PO DAILY 04/28/20 04/28/20 History etodolac 400 mg PO BID 04/28/20 04/28/20 History famotidine 20 mg PO DAILY 04/28/20 04/28/20 History gabapentin 100 mg PO BID 04/28/20 04/28/20 History hydrochlorothiazide 50 mg PO DAILY 04/28/20 04/28/20 History insulin aspart U-100 [Novolog 30 unit SUBCUT TID 04/28/20 04/28/20 History Flexpen U-100 Insulin] insulin glargine [Lantus Solostar 60 unit SUBCUT HS 04/28/20 04/28/20 History U-100 Insulin] lisinopril 40 mg PO DAILY 04/28/20 04/28/20 History Patient History Medical History Acute CHF Cholelithiasis Diabetic peripheral neuropathy Diverticulosis DJD (degenerative joint disease), lumbar Elevated serum creatinine Fatty liver Gastric polyp Hemorrhoids High cholesterol Hypertension IDDM (insulin dependent diabetes mellitus) Iron deficiency anemia Liver lesion Osteoarthritis Perianal fistula Pulmonary edema Renal lesion Surgical History H/O foot surgery left - bone spur Hx of tonsillectomy Family History Mother Diabetes Hypertension Heart disease Father , unknown medical history No problems noted. Brother Hypertension Sister Hypertension Sister Hypertension Social History Smoking Status: Former smoker packs per day: 1; Years Smoked: 15; Smoking End Date: 1983; Second Hand Exposure: No; Do You Dip or Chew Tobacco: No; Tobacco Cessation Education Requested by Patient: No Hx Alcohol Use: Yes Alcohol type: beer and wine Hx Substance Use: No Preferred Language: Kazakh Communication Ability: Effective Data Technician Required: No Beliefs That Will Affect Care: None marital status: Current Living Situation: Spouse Current Living Situation Comment: lives in [place] with current occupational status: retired current occupation: worked for [employer] How many Children do You have: 4 How many Children do You have Comment: step-children Other Information That Helps Us Care for You: No Feels Safe at Home: Yes Safety Concerns: Feels Safe At This Time Assistive Devices: Glasses Review of Systems Gastrointestinal: + blood in stools; no change in bowel habits Physical Exam Gastrointestinal (Abdomen): Percussion/Palpation: abdomen soft; abdomen nontender Rectal Exam: + hemorrhoids (no external, has left perianal induartion, no drainage) Results & Data ([facility]) Vital Signs (Past 12 Hours) Vital Signs Temp Pulse Pulse Resp BP Pulse Ox 05/01/20 07:05 36.8 C 71 16 149/71 H 97 05/01/20 02:47 36.7 C 74 20 150/69 H 92 05/01/20 00:00 80 10/07/20 23:25 37.1 C 82 16 159/75 H 95 PG Care Time/CCT Total # of Minutes Spent Total Time Spent with Patient: Total time spent is greater than 50% in c oordination of care (as documented) at patient's floor/unit and/or counseling patient: Coding Level of Care Code 87577 Initial Inpt Care Lvl 1 Diagnoses Perianal fistula K60.3
--- NOTE | 2020-05-01 15:20 | Ultrasound Report ---
US liver HISTORY: 75 years-old Male hypodense lesions,assess for cysts vs mass follow-up study in a patient w ith cholelithiasis COMPARISON: CT abdomen and pelvis 04/29/2020 TECHNIQUE: Multiple real-time sonographic images of the abdominal right upper quadrant were obtained assessing grayscale appearance and color flow FINDINGS: Increased echogenicity of the liver with poor through transmission. Scattered hepatic cysts. The live r are noted, some of which are septated measuring up to 1.4 x 1.3 x 1.1 cm. Mobile stones within the gallbladder lumen. No gallbladder wall thickening or pericholecystic fluid. Sonographic Cruz sign r eported as negative. Normal common bile duct, 4 mm. The visualized pancreas is unremarkable. No hydro nephrosis of the right kidney. IMPRESSION: 1. Cholelithiasis without sonographic evidence of acute cholecystitis. 2. Increased echogenicity of the liver suggests hepatic steatosis. 3. Multiple small hepatic cysts. ACT 112: Negative or not required by law. The above report was generated using voice recognition software. It may contain grammatical, syntax o r spelling errors. Electronically signed by: Yovani Greco M.D. 05/01/2020 3:19 PM
--- NOTE | 2020-05-01 17:36 | Discharge Summary ---
Date of Service May 01, 2020 Admission HPI Per Admitting Provider 75yo male with history of HTN and T2DM who presents as a referral from the [facility] due to dyspnea. Dyspnea has been present for 2 weeks and mainly with exertion. Has had considerable fatigue and weakness. Has had PND. No orthopnea. Some edema of his feet only. Some cough with congestion. No fevers or chills. Normal appetite. No loss of taste or smell, runny nose, sore throat, diarrhea or vomiting. Minimal LLQ abdominal discomfort recently not worsened by eating. Has had abdominal bloating, however. Has gained 20 pounds of weight in the last 2 months. Reports hemorrhoids and recent bleeding from such. Bleeding started about 2 weeks ago. No melena. Has never had EGD or colonoscopy. Principal Diagnosis GI bleeding, symptomatic anemia Discharge Exam Constitutional WD/WN, vitals as above Eyes + anicteric sclerae Neck trachea midline, no thyromegaly Respiratory normal respiratory effort, lungs clear to auscultation Cardiovascular RRR, no murmur, no edema Chest (Breasts) Chest: normal inspection of chest Gastrointestinal (Abdomen) normal bowel sounds, soft, nontender, no hepatosplenomegaly 1 cm right perianal fistula with opening on the skin, nontender, no erythema Musculoskeletal Extremities: extremities normal to inspection; no cyanosis and no clubbing Skin no rashes, warm and dry Neurologic moves all extremities and awake; no focal motor deficits Psychiatric A+Ox3, euthymic affect Lymphatic no lymphedema Discharge Data Allergies Allergy/AdvReac Type Severity Reaction Status Date / Time No Known Allergies Allergy Unverified 04/28/20 14:54 Consultations 04/28/20 14:48 ED Decision to Admit Stat 04/28/20 16:57 Consult Gastroenterology Routine 04/30/20 17:38 Consult General Surgery Routine Procedures Performed Operation Date: 04/30/20 16:30 Actual Procedures p EGD Polypectomy - Christiano Hernandez Case, DO s Colonoscopy - Christiano Fry. Case, DO Ordered Studies 04/29/20 US renal/blad retro comp Routine 04/29/20 15:00 CT abd pelvis oral and IV con Urgent 04/30/20 15:54 CT chest wo con Routine 05/01/20 15:00 US liver Urgent Echocardiogram Chest x-ray Diabetes Follow up Diabetes Follow-up Needed for HgbA1c >9% Hospital Course (1) Iron deficiency anemia: Severe Fe deficiency -- ferritin <5, presenting Hb 6.2. Chronic rectal bleeding from hemorrhoids may be the culprit but could not rule out GI bleeding from other source versus malabsorption such as celiac disease Hemoglobin now up to 8.0 and stable after 2 units PRBCs on 04/28 CT abdomen/pelvis without obvious mass in the bowels, and with multiple hypode nse liver and renal lesions which could be cysts versus other more concerning lesions. Liver ultrasound confirms cysts in the liver and not masses Appreciate GI consultation-now status post EGD and colonoscopy with findings of gastric polyp which was biopsied-pathology benign. Colonoscopy unable to intubate the cecum due to intolerance to conscious sedation, however only with small nonbleeding internal hemorrhoids and diverticulosis, no masses or source of bleeding. It was an incomplete colonoscopy Needs repeat colonoscopy as an outpatient to see if can intubate the cecum and i f that is still negative for source of bleeding, would qualify for a video capsule endoscopy. Noted to have a perianal fistula seen by surgeon here who did not think this was a source of bleeding. Unclear etiology of perianal fistula. Follow CBC in 1 week as an outpatient -Continue to hold home aspirin -Started ferrous sulfate 325 mg p.o. twice daily Stable for discharge to home with close follow-up with GI and PCP (2) Elevated serum creatinine: Cr at presentation 2.1 and now decreased to 1.66 after PRBC transfusion unknown baseline; patient has never been told he had chronic kidney disease. 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 at the time of colonoscopy by GI As noted above, seen by general surgery (5) Hemorrhoids: Small internal hemorrhoids nonbleeding on colonoscopy (6) Gastric polyp: Biopsy during EGD Benign on pathology (7) Diverticulosis: Noted during colonoscopy, no active bleeding (8) Lytic lesion of bone on x-ray: Noted on CT scan to have 12 mm L3 vertebral body lytic bone lesion on a noncontrast scan, radiologist noted could be hemangioma versus other No obvious malignancy seen on colonoscopy and EGD Consider bone scan as an outpatient -Checked CT of the chest for malignancy in the lung and this was negative for such Discussed this with the patient (9) Cholelithiasis: Noted incidentally on imaging, asymptomatic (10) Fatty liver: Noted on CT scan Needs weight loss and better diabetes control (11) Diabetic peripheral neuropathy: Cont gabapentin. (12) High cholesterol: Cont statin (lipitor 80mg daily). (13) Pulmonary edema: in the setting of acute diastolic CHF. diuresed and improved. (14) Acute CHF: Patient clinically and radiographically had evidence of acute CHF. Echocardiogram with preserved EF, most likely acute on chronic diastolic CHF, severe anemia playing a role s/p lasix 40mg x 1 given in ER and was given an additional dose of IV Lasix after his PRBC transfusion. Shortness of breath is now completely resolved after transfusion of blood and IV Lasix Not hypoxic Changed home atenolol to metoprolol which would be better given his renal failure. Fluid restrict; salt restrict. He is now euvolemic, no further diuretics needed (15) BPH (benign prostatic hyperplasia): Severe symptoms by history. Started flomax 0.4mg daily here and no longer having any issues. This may account for his elevated creatinine No obstruction on renal/bladder ultrasound (16) Renal lesion: Noted on renal ultrasound 1.2 cm indeterminate lesion on left kidney CT abdomen/pelvis also with multiple bilateral hypodense lesions could be cysts of the kidneys Follow as an outpatient (17) Liver lesion: As above, multiple hypodense lesions confirmed to be cysts on liver ultrasound (18) Hypertension: Blood pressure is now mildly elevated with holding home blood pressure medicines -Continue metoprolol 25 mg p.o. twice daily Continue to hold ACEi and HCTZ for MALINDA and will not likely restart Restart home amlodipine 10 mg daily Follow-up with PCP (19) IDDM (insulin dependent diabetes mellitus): Long-standing. Uncontrolled Appreciate CDE consultation Cont lantus 60 units daily. Cont novolog home dose Hemoglobin A1c here is elevated at 9.6% which he reports is an improvement from his previous. [facility] as before (20) DVT prophylaxis: hold on chemical means for now due to rectal bleeding SCD, ambulate Disposition-stable for discharge to home Total Time Total Time Spent Total Time Spent (In Minutes): 35 minutes Total Time Includes: Examination of the Patient, Discharge Planning and Medication Reconciliation Discharge Plan Discharge Items Patient Disposition: Home - Self-Care Reason For Visit: SEVERE SYMPTOMATIC ANEMIA ACUTE CHF Discharge Diagnosis: Symptomatic anemia, GI bleeding Condition on Discharge: Good Activity: As commented below Lifting: Gradually increase as tolerated Exercise/Sports: Gradually increase as tolerated Driving/Machine Use: No limitations Non-emergency contact: Primary Care Provider and [employer] Call non-emergency contact if: you have any medication questions and your symptoms worsen Follow-up/Referrals: Christiano Russell DO [Physician] - (Please call to schedule follow-up repeat colonoscopy as an outpatient.) Richelle Mcdermott PA-C [Primary Care Provider] - (Follow-up within 1 to 2 weeks) Diet: Carb Consistent or DM2 and Heart Healthy Addtl Attending Provider Instructions: You were admitted with severe anemia that caused you to be short of breath. You were transfused with 2 units of blood and your blood count improved. Please continue on the iron tablets twice daily and have your primary care physician check your blood count in 1 week. You had an EGD which showed a noncancerous stomach polyp. You had a colonoscopy which only showed small, nonbleeding internal hemorrhoids, but was not able to be completed due to your intolerance of the sedation. The advisory application developer would like to repeat your colonoscopy with an improved prep and improved sedation as an outpatient. Please call to schedule this after discharge. If you have an increase in your rectal bleeding again, please call the advisory application developer or your primary care physician. If you have chest pains or shortness of breath or any other acute concerns, please come to the hospital right away. You should not take aspirin at this time. You were found to have a lesion in the bone of your L3 vertebrae of undetermined significance. Please follow-up with your primary care physician regarding this for possible bone scan. You were also found to have some kidney failure which did improve slightly duri ng admission. Some of your medications were discontinued or changed due to this. Please follow-up closely with your primary care physician and have blood work to check your kidney function in 1 week. Pending Studies at Discharge: No Stand-Alone Forms: [facility] Medications and DC Order Prescriptions: New magnesium oxide 400 mg (241.3 mg magnesium) Tablet 400 mg PO QAM Qty: 30 RF: 0 tamsulosin 0.4 mg Capsule 0.4 mg PO QAM Qty: 30 RF: 0 ferrous sulfate 325 mg (65 mg iron) Tablet,Delayed Release (Dr/Ec) 325 mg PO BIDM Qty: 60 RF: 0 metoprolol tartrate 25 mg Tablet 25 mg PO BID Qty: 60 RF: 0 Continued atorvastatin 80 mg Tablet 80 mg PO HS RF: 0 cetirizine 10 mg Tablet 10 mg PO DAILY RF: 0 famotidine 20 mg Tablet 20 mg PO DAILY RF: 0 amlodipine 10 mg Tablet 10 mg PO DAILY RF: 0 gabapentin 100 mg Capsule 100 mg PO BID RF: 0 insulin aspart U-100 [Novolog Flexpen U-100 Insulin] 100 unit/mL (3 mL) Insulin Pen 30 unit SUBCUT TID RF: 0 cholecalciferol (vitamin D3) 25 mcg (1,000 unit) Tablet 25 mcg PO DAILY RF: 0 Lantus Solostar U-100 Insulin 100 unit/mL (3 mL) Insulin Pen 60 unit SUBCUT HS RF: 0 Discontinued etodolac 200 mg Capsule 400 mg PO BID RF: 0 hydrochlorothiazide 50 mg Tablet 50 mg PO DAILY RF: 0 atenolol 25 mg Tablet 25 mg PO DAILY RF: 0 aspirin 81 mg Tablet,Delayed Release (Dr/Ec) 81 mg PO DAILY RF: 0 lisinopril 40 mg Tablet 40 mg PO DAILY RF: 0 Discharge Orders: Discharge Order (Routine); Ordered 05/01/20 Ordered By: Alexandria Lemus Admission Data Admit Date/Time: 04/28/20 16:00 Attending Provider: Alexandria Lemus Admit Provider: Jono Lozano Primary Care Provider: Richelle Mcdermott Other Providers: Jono Lozano ; Christiano Russell ; Nirav Longo Other Interventions: Discharge Summary Assessment (RN) Last Done: 05/01/20 17:43 Coding Level of Care Code D/C Day Management >30 mins Diagnoses Iron deficiency anemia D50.9 Iron deficiency anemia type: unspecified iron deficiency Elevated serum creatinine R79.89 Heme positive stool R19.5 Perianal fistula K60.3 Hemorrhoids K64.9 Hemorrhoid type: unspecified Gastric polyp K31.7 Diverticulosis K57.90 Lytic lesion of bone on x-ray M89.9 Cholelithiasis K80.20 Fatty liver K76.0 Diabetic peripheral neuropathy E11.42 High cholesterol E78.00 Pulmonary edema J81.0 Chronicity: acute Acute CHF I50.9 Heart failure type: unspecified BPH (benign prostatic hyperplasia) N40.1; R39.14 Lower urinary tract symptom detail: incomplete bladder emptying Lower urinary tract symptom presence: symptoms present Renal lesion N28.9 Liver lesion K76.9 Hypertension I10 Hypertension type: essential hypertension IDDM (insulin dependent diabetes mellitus) DVT prophylaxis Z29.9
== END 2020-05-01 18:33 | disposition home or self-care (01) | DRG 377 ==
LOC: ED 12:01 → 2S 16:00 → SUATTDRO 16:00 → 2S 16:28